=== PATIENT | male | born 1965 | race Caucasian/White ===

== ENCOUNTER → 2016-09-23 | Outpatient (CLI) | payer OTHER ==
[~2016-09-23] MED LIST: ASCO-129 PO; CALC600T12 PO; CATHETER FLUSH 10 ML SYR IV PRN; CLIN-62 PO; CLIN300C3 PO; CLINDAMYCIN PO; CYCL10TA9 PO; DOXY100C2 PO; ENAL10TA PO; GABA-486 PO; HYDR-3729 PO; HYDR-3812 PO; HYDR25TA4 PO; LORA10TA7 PO; REGADENOSON 0.4 MG/5 ML SYR (LEXISCAN) IV ONE; TRAM50TA2 PO
--- OUTSIDE RECORDS SUMMARY | 2016-09-23 07:25 | XMS REPORT | Continuity of Care Document ---
Author Author [facility] Organization [facility] Address Unknown Phone Unavailable Care Team Providers Care Well Services Operator Name Role Phone JuanpabloOralia cruz PCP [phone] Source Comments Some departments are not documenting in the electronic medical record. If you do not see the information that you expected, contact Release of Information in the Health Information Management department at [phone] for further assistance in locating additional records.[facility] Active Allergies and Adverse Reactions Allergen Noted Date Severity Reactions Comments Penicillins 08/31/2015 Medium HIVES Current Medications Prescription Sig. Disp. Refills Start End Date Status Date IBUPROFEN (ADVIL PO) Take 600 mg by mouth as Active Needed. acetaminophen/codeine Take 1 Tab by mouth every Active (TYLENOL NO.2) 300/15 mg 4 hours as needed for tablet Pain. CALCIUM CARBONATE Take 500 mg by mouth Active (CALCIUM 500 PO) daily. ASCORBATE CALCIUM Take 500 mg by mouth Active (VITAMIN C PO) daily. vitamin E 100 unit Take 100 Units by mouth Active capsule daily. DOCOSAHEXANOIC ACID/EPA Take 300 mg by mouth Active (FISH OIL PO) daily. potassium chloride SR Take 10 mEq by mouth Active (K-DUR) 10 mEq tablet daily. hydrochlorothiazide Take 12.5 mg by mouth Active (HYDRODIURIL) 12.5 mg tab daily. tablet magnesium oxide (MAG-OX) Take 400 mg by mouth Active 400 mg tablet daily. enalapril (VASOTEC) 10 mg Take 10 mg by mouth Active tablet daily. enalapril (VASOTEC) 5 mg Take 5 mg by mouth at Active tablet bedtime daily. loratadine (CLARITIN) 10 Take 10 mg by mouth Active mg tablet daily. gabapentin (NEURONTIN) Take 1 Cap by mouth three 90 Cap 5 08/31/19 Active 300 mg capsule times daily. 16 Active Problems Problem Noted Date Low back pain 08/31/2015 Pain in both lower extremities 08/31/2015 Muscle cramping 08/31/2015 Social History Tobacco Use Types Packs/Day Years Used Date Former Smoker Cigarettes 1 23 Quit: 08/17/2011 Alcohol Use Drinks/Week oz/Week Comments Yes 0 Standard 0.0 social rarely drinks or equivalent Last Filed Vital Signs Vital Sign Reading Time Taken Blood Pressure 148/93 08/31/2015 9:54 AM ALTO SINGER Pulse 79 08/31/2015 9:54 AM ALTO SINGER Temperature 36.9 C (98.4 F) 08/31/2015 9:54 AM ALTO SINGER Respiratory Rate 16 08/31/2015 9:54 AM ALTO SINGER Height 1.803 m (5' 11") 08/31/2015 9:54 AM ALTO SINGER Weight 102.967 kg (227 lb) 08/31/2015 9:54 AM ALTO SINGER Body Mass Index 31.67 08/31/2015 9:54 AM ALTO SINGER Oxygen Saturation 94% 08/31/2015 9:54 AM ALTO SINGER Plan of Care Health Maintenance Due Date Last Done Comments Physical (Comprehensive) 02/28/1971 Exam Pertussis Vaccine 02/28/1975 Tetanus Vaccine 02/28/1981 Colorectal Cancer 02/28/2014 Screening Influenza Vaccine 04/17/2016 Results from Last 3 Months Not on file
[2016-09-23 09:27] VITALS: BP 139/80
[2016-09-23 09:30] VITALS: BP 121/85
--- NOTE | 2016-09-24 09:16 | STRESS TEST ---
PROCEDURE PHYSICIAN: NOMAN PRATT DATE OF PROCEDURE: 09/23/2016 RESTING AND POST REGADENOSON TECHNETIUM 99M TETROFOSMIN SPECT CT IMAGING: ORDERING PHYSICIAN: Dr. Pratt PRIMARY PHYSICIAN: Dr. Geronimo CLINICAL DIAGNOSIS: 1. Abnormal electrocardiogram. 2. Hypertension. 3. Hyperlipidemia. 4. History of tobacco use. Baseline images were carried out after injection of 10.12 mCi of technetium 99m tetrofosmin. This was followed by 0.4 mg of regadenoson and 30.2 mCi of technetium 99m tetrofosmin for stress images. The electrocardiogram showed sinus rhythm with subtle nonspecific ST abnormality, which did not change significantly with regadenoson infusion. The patient tolerated the procedure well. Review of images at rest and following stress, does not indicate any significant perfusion defects consistent with myocardial ischemia or infarction. Left ventricular ejection fraction is calculated to be 55%. Left ventricular end-diastolic volume is 87 mL. TID is absent (1.04). CONCLUSIONS: 1. No evidence of significant myocardial ischemia or infarction on this study. 2. Normal regional wall motion. 3. Normal global left ventricular systolic function with a calculated ejection fraction of 55%. Job ID: [id number] Dictated Date: 09/23/2016 16:38:06 Supervisor Nurse Date: 09/24/2016 09:11:07 / mariah
== END ==
LOC: CARD 07:22
PROVIDERS: ATTEND Internal Medicine Cardiovascular Disease
DX: I10 Essential (primary) hypertension (principal); R94.31 Abnormal electrocardiogram [ECG] [EKG]; E78.4 Other hyperlipidemia; Z87.891 Personal history of nicotine dependence
CPT/HCPCS: 78452; 93017

== ENCOUNTER → 2016-09-24 | Outpatient (CLI) | payer OTHER ==
[~2016-09-24] MED LIST changes: -CATHETER FLUSH 10 ML SYR IV PRN; -REGADENOSON 0.4 MG/5 ML SYR (LEXISCAN) IV ONE
--- OUTSIDE RECORDS SUMMARY | 2016-09-24 13:00 | XMS REPORT | Continuity of Care Document ---
Author Author [facility] Organization [facility] Address Unknown Phone Unavailable Care Team Providers Care Reworker Name Role Phone JuanpabloOralia cruz PCP [phone] Source Comments Some departments are not documenting in the electronic medical record. If you do not see the information that you expected, contact Release of Information in the Health Information Management department at [phone] for further assistance in locating additional records.[facility] Active Allergies and Adverse Reactions Allergen Noted [...] Taken Blood Pressure 148/93 08/31/2015 9:54 AM SALVAGE WORKER Pulse 79 08/31/2015 9:54 AM SALVAGE WORKER Temperature 36.9 C (98.4 F) 08/31/2015 9:54 AM SALVAGE WORKER Respiratory Rate 16 08/31/2015 9:54 AM SALVAGE WORKER Height 1.803 m (5' 11") 08/31/2015 9:54 AM SALVAGE WORKER Weight 102.967 kg (227 lb) 08/31/2015 9:54 AM SALVAGE WORKER Body Mass Index 31.67 08/31/2015 9:54 AM SALVAGE WORKER Oxygen Saturation 94% 08/31/2015 9:54 AM SALVAGE WORKER Plan of Care Health Maintenance Due Date Last Done Comments Physical (Comprehensive) 02/28/1971 Exam Pertussis Vaccine 02/28/1975 Tetanus Vaccine 02/28/1981 Colorectal Cancer 02/28/2014 Screening Influenza Vaccine 04/17/2016 Results from Last 3 Months Not on file
--- NOTE | 2016-09-24 13:21 | Diagnostic Imaging Report ---
PROCEDURE: CT head without contrast. TECHNIQUE: Multiple contiguous axial images were obtained through the brain without the use of intravenous contrast. INDICATION: Headache. COMPARISON: None. FINDINGS: No intracranial hemorrhage, mass effect, hydrocephalus or extra-axial fluid collections. No CT evidence of acute infarction. Osseous structures are intact. The orbits and paranasal sinuses are unremarkable. IMPRESSION: Negative head CT. Dictated by: Dictated on workstation # [id number]
== END ==
LOC: RAD 12:57
PROVIDERS: ATTEND Internal Medicine Cardiovascular Disease
DX: R51 Headache (principal)
CPT/HCPCS: 70450

== ENCOUNTER → 2016-10-13 | Outpatient (CLI) | payer OTHER ==
--- OUTSIDE RECORDS SUMMARY | 2016-10-13 09:07 | XMS REPORT | Continuity of Care Document ---
Author Author [facility] Organization [facility] Address Unknown Phone Unavailable Care Team Providers Care Commercial Leasing Manager Name Role Phone JuanpabloOralia cruz PCP [phone] Source Comments Some departments are not documenting in the electronic medical record. If you do not see the information that you expected, contact Release of Information in the Health Information Management department at [phone] for further assistance in locating additional records.[facility] Active Allergies and Adverse Reactions Allergen Noted [...] Taken Blood Pressure 148/93 08/31/2015 9:54 AM WASHCOAT WIPER Pulse 79 08/31/2015 9:54 AM WASHCOAT WIPER Temperature 36.9 C (98.4 F) 08/31/2015 9:54 AM WASHCOAT WIPER Respiratory Rate 16 08/31/2015 9:54 AM WASHCOAT WIPER Height 1.803 m (5' 11") 08/31/2015 9:54 AM WASHCOAT WIPER Weight 102.967 kg (227 lb) 08/31/2015 9:54 AM WASHCOAT WIPER Body Mass Index 31.67 08/31/2015 9:54 AM WASHCOAT WIPER Oxygen Saturation 94% 08/31/2015 9:54 AM WASHCOAT WIPER Plan of Care Health Maintenance Due Date Last Done Comments Physical (Comprehensive) 02/28/1971 Exam Pertussis Vaccine 02/28/1975 Tetanus Vaccine 02/28/1981 Colorectal Cancer 02/28/2014 Screening Influenza Vaccine 04/17/2016 Results from Last 3 Months Not on file
[2016-10-13 09:34] LABS: ALANINE AMINOTRANSFERASE 56 U/L (0-55); ALBUMIN 4.4 G/DL (3.2-4.5); ANION GAP 10 MMOL/L (5-14); ASPARTATE AMINO TRANSFERASE 29 U/L (5-34); BILIRUBIN,TOTAL 1.3 MG/DL (0.1-1.0); BLOOD UREA NITROGEN 19 MG/DL (7-18); BUN/CREATININE RATIO 19; CALCIUM 9.2 MG/DL (8.5-10.1); CARBON DIOXIDE 22 MMOL/L (21-32); CHLORIDE 109 MMOL/L (98-107); CHOLESTEROL 215 MG/DL (< 200); DIRECT LDL 149 MG/DL (1-129); GFR ESTIMATED > 60; GLUCOSE 97 MG/DL (70-105); MAGNESIUM 2.2 MG/DL (1.8-2.4); POTASSIUM 4.7 MMOL/L (3.6-5.0); SODIUM 141 MMOL/L (135-145); TOTAL PROTEIN 6.8 G/DL (6.4-8.2); TRIGLYCERIDES 219 MG/DL (<150); VLDL CHOLESTEROL 44 MG/DL (5-40)
[2016-10-13 09:54] LABS: THYROID STIMULATING HORMONE 1.51 UIU/ML (0.35-4.94)
== END ==
LOC: LAB 08:56
PROVIDERS: ATTEND Internal Medicine Cardiovascular Disease
DX: I10 Essential (primary) hypertension (principal); R94.31 Abnormal electrocardiogram [ECG] [EKG]; E78.4 Other hyperlipidemia; R51 Headache; Z87.891 Personal history of nicotine dependence
CPT/HCPCS: 36415; 80053; 80061; 83735; 84443

== ENCOUNTER → 2017-01-05 | Outpatient (CLI) | payer OTHER ==
[2017-01-05 09:17] LABS: ALANINE AMINOTRANSFERASE 70 U/L (0-55); ANION GAP 7 MMOL/L (5-14); ASPARTATE AMINO TRANSFERASE 38 U/L (5-34); BILIRUBIN,TOTAL 1.4 MG/DL (0.1-1.0); BLOOD UREA NITROGEN 17 MG/DL (7-18); BUN/CREATININE RATIO 16; CARBON DIOXIDE 21 MMOL/L (21-32); CHLORIDE 115 MMOL/L (98-107); CHOLESTEROL 189 MG/DL (< 200); CREATININE SERUM 1.09 MG/DL (0.60-1.30); DIRECT LDL 152 MG/DL (1-129); GFR ESTIMATED > 60; GLUCOSE 99 MG/DL (70-105); POTASSIUM 4.3 MMOL/L (3.6-5.0); SODIUM 143 MMOL/L (135-145); TOTAL PROTEIN 6.3 G/DL (6.4-8.2); TRIGLYCERIDES 161 MG/DL (<150); VLDL CHOLESTEROL 32 MG/DL (5-40)
== END ==
LOC: LAB 08:28
PROVIDERS: ATTEND Nurse Practitioner Family
DX: I10 Essential (primary) hypertension (principal); E87.4 Mixed disorder of acid-base balance; G47.39 Other sleep apnea; R51 Headache; Z79.891 Long term (current) use of opiate analgesic
CPT/HCPCS: 36415; 80053; 80061

== ENCOUNTER → 2019-07-19 | Outpatient (CLI) | payer BC, OTHER ==
[~2019-07-19] VITALS: Ht 180.3 cm; Wt 101.4 kg
[~2019-07-19] MED LIST changes: +ACHD5005 PO; +CATHETER FLUSH 10 ML SYR IV PRN; -HYDR-3812 PO; +REGADENOSON 0.4 MG/5 ML SYR (LEXISCAN) IV ONE
--- NOTE | 2019-07-25 09:50 | STRESS TEST ---
DATE OF SERVICE: 07/19/2019 RESTING AND POST REGADENOSON TECHNETIUM-99M TETROFOSMIN SPECT CT IMAGING ORDERING PHYSICIAN: Stephani Hidalgo APRN PRIMARY PHYSICIAN: Dr. Geronimo. CLINICAL DIAGNOSIS: Shortness of breath, chest discomfort. Baseline images were carried out after injection of 10.6 mCi of technetium-99m Tetrofosmin. This was followed by 0.4 mg Regadenoson and 29.9 mCi of technetium-99m Tetrofosmin for stress imaging. The electrocardiogram showed sinus rhythm with nonspecific ST abnormality, which did not change significantly with Regadenoson infusion. The patient tolerated the procedure well. Review of images at rest and following stress does not indicate distinct perfusion defects consistent with significant myocardial ischemia or infarction. Gated images show normal global left ventricular systolic function with normal regional wall motion. Left ventricular ejection fraction is calculated to be 55%. Left ventricular end diastolic volume is 76 mL. TID is absent (1.06). CONCLUSIONS: 1. No evidence of any significant myocardial ischemia or infarction on this study. 2. Normal regional wall motion. 3. Normal global left ventricular systolic function with a calculated ejection fraction of 55%. Job ID: [id number] DocumentID: [id number] Dictated Date: 07/25/2019 08:45:32 Poleyard Supervisor Date: 07/25/2019 09:25:26 Dictated By: NOMAN GALLARDO MD, MA, FACP, FACC,
== END ==
LOC: CARD 12:01
PROVIDERS: ATTEND Nurse Practitioner Family
DX: E78.5 Hyperlipidemia, unspecified (principal); I10 Essential (primary) hypertension; G47.33 Obstructive sleep apnea (adult) (pediatric); R00.2 Palpitations; R07.89 Other chest pain
CPT/HCPCS: 78452; 93017

== ENCOUNTER → 2019-07-25 | Outpatient (CLI) | payer BC, OTHER ==
[~2019-07-25] MED LIST changes: -CATHETER FLUSH 10 ML SYR IV PRN; -REGADENOSON 0.4 MG/5 ML SYR (LEXISCAN) IV ONE
== END ==
LOC: RAD 13:38
PROVIDERS: ATTEND Nurse Practitioner Family
DX: I08.0 Rheumatic disorders of both mitral and aortic valves (principal); I10 Essential (primary) hypertension; E78.5 Hyperlipidemia, unspecified; G47.33 Obstructive sleep apnea (adult) (pediatric)
CPT/HCPCS: 93225; 93226; 93306

== ENCOUNTER 2019-12-27 07:05 | Day surgery (SDC) | payer BC ==
[~2019-12-27] VITALS: Ht 180 cm; Wt 100.0 kg
[2019-12-27] VITALS (10 sets, daily range): BP systolic 106–130; BP diastolic 64–84
[2019-12-27] MEDS ORDERED: HEParin (CATH LAB) 2,000 ML IV ONE (07:06)
[2019-12-27] MEDS ORDERED: NS IV 1000 ML 1,000 ML ONE (07:06)
[2019-12-27] MEDS ORDERED: LIDOCAINE 1% INJ 20 ML 20 ML VIAL ONE (07:06)
[2019-12-27] MEDS ORDERED: NS IV 1000 ML 1,000 ML IV SCH ×2 (07:15→10:44)
--- OUTSIDE RECORDS SUMMARY | 2019-12-27 07:18 | XMS REPORT ---
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 Operator Tig Welder Name Role Phone JOHANNA, STEPHANI A Unavailable INDY JORGE Unavailable Unavailable CALVO, ANA-DANIELLE Unavailable Unavailable CALVO, ANA-DANIELLE Unavailable Unavailable BROKOB, SIDNEY Unavailable Unavailable BROWN, NEW Unavailable Unavailable BROWN, NEW Unavailable Unavailable PAULINA LABOY FAC, NOMAN SULTANAP CCDS Unavailable Unavailabl e JOHANNA, STEPHANI Unavailable Unavailable JOHANNA, STEPHANI Unavailable Unavailable JOHANNA, STEPHANI Unavailable Unavailable JOHANNA, STEPHANI Unavailable Unavailable BROKOB, SIDNEY Unavailable Unavailable BROKOB, SIDNEY Unavailable Unavailable BROKOB, SIDNEY Unavailable Unavailable JOHANNA, STEPHANI Unavailable Unavailable JOHANNA, STEPHANI Unavailable Unavailable BROWN, NEW Unavailable Unavailable BROWN, NEW Unavailable Unavailable BROWN, NEW Unavailable Unavailable PAULINA LABOY [facility], NOMAN GONZALEZ CCDS Unavailable Unavailabl e BRENNEN DPM, ALISA Q Unavailable Unavailable LORI, HIMANSHU L DISTRICT CUSTOMS DIRECTOR Unavailable Unavailable SANTIAGO LABOY, PAM Schultz Unavailable Unavailable SANTIAGO LABOY, PAM Schultz Unavailable Unavailable Unavailable Unavailable Unavailable Unavailable Unavailable Unavailable Allergies No Information Medications Medication Ingredient Drug Dose Dates Status Sig Sig Care Class(es) (Normalized) (Original) Provid er no Lisinopril Angiotensin 10 mg 09-12-19 no no no no information Converting 17 - informat information informati on name (1 source.) Enzyme 09-18-19 ion Inhibitor 17 10 mg 09-11-2016 no no no no name - information inform informat 09-11-2016 ation ion Problems Active Problems Problem Normalized Date Last Normalized Normalized Provider Fa tamikoty Classification Problem(s) Recorded Problem Problem Sta tus Duration Other Abnormal 12-23-2019 - Episodic Active NOMAN GALLARDO [facility] Via screening for electrocardiog [facility] Aliya suspected miah [ECG] Hospital - conditions [EKG] [place] (not mental (62896) disorders or infectious disease) (7 sources.) Acute Acute Episodic Active [facility] bronchitis (2 bronchitis, [facility] of sources.) unspecified [place] Translations: [facility] (71642) [ ACUTE BRONCHITIS] Other upper Allergic Chronic Active [facility] respiratory rhinitis, [facility] of disease (1 unspecified [place] source.) [facility] (56767) Skin and Cellulitis and 12-23-2019 - Episodic Active PAM ADLER [facility] Via subcutaneous abscess of , [place] tissue face Hospital - infections (2 [place] sources.) (02079) Other Cramp and Episodic Active [facility] connective spasm [facility] of tissue disease [place] (2 sources.) [facility] (41488) Other Cramp of limb Episodic Active [facility] ital connective [facility] of tissue disease [place] (2 sources.) [facility] (38751) Disorders of Dental caries, 12-23-2019 - Episodic Active JUAN M HENDERSON [facility] Via teeth and jaw unspecified , [place] (2 sources.) [facility] (60771) Other Diarrhea Episodic Active [facility] gastrointestin [facility] of al disorders [place] (4 sources.) [facility] (97740) Other Diarrhea, Episodic Active [facility] gastrointestin unspecified [facility] of al disorders [place] (4 sources.) [facility] (70905) Immunizations Encounter for 12-23-2019 - Episodic Active ALISA HUTTON [facility] Via and screening screening for ELAINE [place] for infectious other Hospital - disease (3 bacterial [place] sources.) diseases (38455) Essential Essential 12-23-2019 - Chronic Active SIDNEY MARYLUB Not Available hypertension (primary) (59723) (24 sources.) hypertension Translations: [ UNSPECIFIED ESSENTIAL HYPERTENSION, MALIGNANT ESSENTIAL HYPERTENSION] Headache; Headache 12-23-2019 - Episodic Active INDY HOWAYEK Not Available including (70251) migraine (11 sources.) Gout and other Idiopathic Chronic Active INDY HOWAYEK No t Available crystal gout, left (95787) arthropathies ankle and foot (3 sources.) Translations: [ IDIOPATHIC GOUT, RIGHT ANKLE AND FOOT, GOUTY ARTHROPATHY, UNSPECIFIED] Other Idiopathic Chronic Active INDY HOWAYEK 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 (13053) degenerative autonomic nervous system neuropathy, conditions (5 unspecified sources.) Other injuries Insect bite, Episodic Active [facility] ospital and conditions nonvenomous, [facility] of due to of other, [place] external multiple, and County ([address]594) causes (2 unspecified sources.) sites, without mention of infection Other long term 12-23-2019 - Episodic Active HIMANSHU BAIMA [facility] Via aftercare (3 (current) use Aliya sources.) of opiate Hospital - analgesic [place] (92479) Spondylosis; Low back pain Episodic Active [facility] ospital intervertebral Translations: [facility] of disc [ PAIN IN [place] disorders; THORACIC County (89548) other back SPINE, problems (22 LUMBAGO, PAIN sources.) IN THORACIC SPINE] Fluid and Mixed disorder 12-23-2019 - Episodic Active HIMANSHU BAIMA [facility] Via electrolyte of acid-base Aliya disorders (3 balance Hospital - sources.) [place] (42049) Disorders of Mixed 12-23-2019 - Chronic Active [facility] B Not Available lipid hyperlipidemia (92198) metabolism (21 Translations: sources.) [ MIXED HYPERLIPIDEMIA , HYPERLIPIDEMIA , UNSPECIFIED, OTHER AND UNSPECIFIED HYPERLIPIDEMIA , OTHER HYPERLIPIDEMIA ] Residual Obstructive 12-23-2019 - Chronic Active HIMANSHU BAIM A [facility] Via codes; sleep apnea Aliya unclassified (adult) Hospital - (4 sources.) (pediatric) [place] (52537) Nonspecific Other chest 12-23-2019 - Episodic Active [facility] chest pain (5 pain [facility] of sources.) Translations: [place] [ OTHER CHEST [facility] (55298) PAIN] Other Other Chronic Active INDY JORGE Not Avail able hereditary and idiopathic (52333) degenerative peripheral nervous system autonomic conditions (5 neuropathy sources.) Residual Other Episodic Active [facility] Hospital codes; ill-defined [facility] of unclassified conditions [place] (2 sources.) [facility] (54798) Residual Other sleep 12-23-2019 - Chronic Active HIMANSHU BAIM A [facility] Via codes; apnea Aliya unclassified Hospital - (3 sources.) [place] (00885) Cardiac Palpitations 12-23-2019 - Episodic Active HIMANSHU KARLEE MA [facility] Via dysrhythmias [facility] (3 sources.) Hospital - [place] (51760) Screening and Personal 12-23-2019 - Episodic Active NOMAN GALLARDO , [facility] Via history of history of FACC Aliya mental health nicotine Hospital - and substance dependence [place] abuse codes (7 (08815) sources.) Other lower Pleurodynia Episodic Active SIDNEY BROKOB Hospi luisa respiratory [facility] of disease (2 [place] sources.) [facility] (72140) Other skin Rash and other Episodic Active STEPHANI JOHANNA Ho spital disorders (3 nonspecific [facility] of sources.) skin eruption [facility] (77773) Other skin Rash and other Episodic Active STEPHANI JOHANNA Ho spital disorders (3 nonspecific [facility] of sources.) skin eruption [facility] (20265) Heart valve Rheumatic 12-23-2019 - Chronic Active HIMANSHU KARLEE MA [facility] Via disorders (1 disorders of , DISTRICT CUSTOMS DIRECTOR [facility] source.) both mitral Hospital - and aortic [place] valves (22587) Abdominal pain Right lower Episodic Active no name no in formation (4 sources.) quadrant pain Translations: [ ABDOMINAL PAIN, RIGHT LOWER QUADRANT] Other Spontaneous 12-23-2019 - Episodic Active ALISA HUTTON , [facility] Via connective rupture of [facility] tissue disease other tendons, Hospital - (2 sources.) other [place] (05787) Sprains and Strain of Episodic Active no name no informa tion strains (3 muscle, fascia sources.) and tendon of abdomen Translations: [ OTHER SPECIFIED SITES OF SPRAINS AND STRAINS] Other ear and Tinnitus, Episodic Active SIDNEY BROKOB Hospi luisa sense organ unspecified [facility] of disorders (4 ear [place] sources.) [facility] (10897) Other ear and Unspecified Chronic Active SIDNEY BROKOB Hos pital sense organ hearing loss, [facility] of disorders (5 unspecified [place] sources.) ear [facility] (47435) Other injuries Unspecified Episodic Active SIDNEY BROKOB Ho spital and conditions multiple [facility] of due to injuries [place] external [facility] (96121) causes (2 sources.) Viral Viral Episodic Active [facility] infection (2 infection, [facility] of sources.) unspecified [facility] (97223) Past or Other Problems Problem Normalized Date Last Normalized Normalized Provider Fa cility Classification Problem(s) Recorded Problem Problem Sta tus Duration Unclassified Allergic no information no information [facility] (1 source.) rhinitis [facility] of [facility] (94554) Residual Edema Episodic Completed INDY JORGE Not Avail able codes; (83513) unclassified (3 sources.) Unclassified Hearing loss no information no information [facility] (5 sources.) [facility] of [facility] (77023) Residual Localized Episodic Completed INDY HOWAYEK Not Avai lable codes; edema (41787) unclassified (3 sources.) Other Other Episodic Completed INDY HOWAYEK Not Avail able complications complications (31610) of ; of anesthesia puerperium or other affecting sedation in management of labor and mother (1 delivery, source.) delivered, with or without mention of antepartum condition Unclassified Tinnitus no information no information [facility] (4 sources.) [facility] of [facility] (53612) Procedures Procedure Normalized Procedure Procedure Result Performer Facility Date 10-17-2014 DRAIN FACE MOUTH FLOOR no information no name [facility] Via [facility] (63880) 10-17-2014 Other surgical no information no name [facility] Via [facility] (09386) Immunizations The data below is from unstructured sourcesNo immunization records.No immunization records.No immunization records. Results Test Name Value Interpretation Reference Range Date Time Fa cility (Normalized) (Normalized) (Medline Reference) not yet categorized on 2019-08-23 Urine Volume Urine Volume (no code) 08-23-2019 Hospital Sufficient 03: [facility] of (10mL) [facility] (46317) no information Urine Saved if (A) 08-23-2019 Hospital Culture Needed 03: [facility] of (48hrs from time [facility] of collection) (16932) laboratory on 2019-08-23 Albumin BCG dye 4.5 (no code) 08-23-2019 Hospital [Mass/Vol] 03: [facility] of [facility] (42416) ALP [Catalytic 64 U/L (no code) 44 - 147 U/L 08-23-2019 Hosp ital activity/Vol] 03: [facility] of [facility] (98971) ALT [Catalytic 30 U/L (no code) 4 - 40 U/L 08-23-2019 Hospit al activity/Vol] 03: [facility]1 [facility] (53680) Anion gap 13 mmol/L (no code) 3 - 11 mmol/L 08-23-2019 Hospital [Moles/Vol] 03: [facility] of [facility] (71149) AST [Catalytic 21 U/L (no code) 10 - 34 U/L 08-23-2019 Hospi luisa activity/Vol] 03: [facility] of [facility] (87728) Bacteria LM Ql Negative (no code) 08-23-2019 Hospital (Urine sed) 03: [facility] of [facility] (74728) Basophils (Bld) 0.1 10*3/uL (no code) 0 - 0.3 10*3/uL 08-23-2019 Hospital [#/Vol] 03: [facility] of [facility] (67618) Basophils/100 1.20 % (no code) 0.5 - 1 % 08-23-2019 Hospital WBC (Bld) 03: [facility] of [facility] () Bilirubin 0.6 mg/dL (no code) 0.1 - 1.2 mg/dL 08-23-2019 Hospit al [Mass/Vol] 03: [facility] of [facility] (25438) Bilirubin N/A (A) 08-23-2019 Hospital Confirm Ql (U) 03: [facility] of [facility] (40001) Bilirubin Ql (U) Negative (no code) 08-23-2019 Hospital 03: [facility] of [facility] (90405) Calcium 9.2 mg/dL (no code) 8.5 - 10.2 mg/dL 08-23-2019 Hospi luisa [Mass/Vol] 03: [facility] of [facility] (18886) Chloride 112 mmol/L (no code) 95 - 106 mmol/L 08-23-2019 Hospi luisa [Moles/Vol] 03: [facility] of [facility] (08305) Cholesterol 248 mg/dL (H) 180 - 200 mg/dL 08-23-2019 Hosp ital [Mass/Vol] 03: [facility] of [facility] (46902) Cholesterol in 32 mg/dL (no code) 08-23-2019 Hospital HDL [Mass/Vol] 03: [facility] of [facility] (25321) Cholesterol in 183 mg/dL (H) 0 - 100 mg/dL 08-23-2019 Hos pital LDL [Mass/Vol] 03: [facility] of [facility] (83823) Cholesterol in 33 mg/dL (no code) 08-23-2019 Hospital VLDL [Mass/Vol] 03: [facility] of [facility] (24795) Cholesterol.tota 7.8 {ratio} (H) 08-23-2019 Hospital l/Cholesterol in 03: [facility] of HDL [Mass ratio] [facility] (89974) Clarity (U) Clear (no code) 08-23-2019 Hospital 03: [facility] of [facility] (30507) Color (U) Yellow (no code) 08-23-2019 Hospital 03: [facility] () Creatinine 0.99 mg/dL (no code) 08-23-2019 Hospital [Mass/Vol] 03: [facility] of [facility] (86312) Eosinophils 0.2 10*3/uL (no code) 0.05 - 0.5 08-23-2019 Hospita l (Bld) [#/Vol] 10*3/uL 03: [facility] of [facility] (52676) Eosinophils/100 3.1 % (no code) 1 - 4 % 08-23-2019 Hospit al WBC (Bld) 03: [facility] of [facility] (09269) Epithelial Rare/HPF (A) 08-23-2019 Hospital cells.squamous 03: [facility] of LM.HPF (Urine [facility] sed) [#/Area] (38606) Erythrocyte 12.9 % (no code) 11.6 - 14.6 % 08-23-2019 Hospit al distribution 03: [facility] of width (RBC) [facility] [Ratio] (38739) GFR/1.73 sq 78 (no code) 90 - 120 08-23-2019 Hospital M.predicted MDRD mL/min/{1.73_m2} mL/min/{1.73_m2} 03: [facility] of (S/P/Bld) [Vol [facility] rate/Area] (47468) Globulin (S) 2.6 g/dL (no code) 2 - 3.5 g/dL 08-23-2019 Hospit al [Mass/Vol] 03: [facility] of [facility] () Glucose 95 mg/dL (no code) 60 - 125 mg/dL 08-23-2019 Hospita l [Mass/Vol] 03: [facility] () Glucose Test Negative (no code) 08-23-2019 Hospital strip (U) 03: [facility] of [Mass/Vol] [facility] () HCO3 (P) 22 (no code) 08-23-2019 Hospital [Moles/Vol] 03: [facility] of [facility] () Hematocrit (Bld) 41.1 % (L) 36.1 - 50.3 % 08-23-2019 H ospital [Volume 03: [facility] of fraction] [facility] () Hemoglobin (Bld) 14.1 g/dL (no code) 12.1 - 17.2 g/dL 08-23-2019 Hospital [Mass/Vol] 03: [facility] () Hemoglobin Ql Negative (no code) 08-23-2019 Hospital (U) 03: [facility] () Ketones (U) Negative (no code) 08-23-2019 Hospital [Mass/Vol] 03: [facility] () Leukocyte Negative (no code) 08-23-2019 Hospital esterase Test 03: [facility] of strip Ql (U) [facility] () Lymphocytes 1.80 10*3/uL (no code) 0.9 - 2.9 08-23-2019 Hospita l (Bld) [#/Vol] 10*3/uL 03: [facility] of [facility] (82419) Lymphocytes/100 28.1 % (no code) 20 - 40 % 08-23-2019 Hospit al WBC (Bld) 03: [facility] of [facility] (62129) MCH (RBC) 31.1 pg (no code) 27 - 31 pg 08-23-2019 Hospital [Entitic mass] 03: [facility] (14098) MCHC (RBC) 34.3 g/dL (no code) 32 - 36 g/dL 08-23-2019 Hospital [Mass/Vol] 03: [facility] of [facility] (22531) MCV (RBC) 90.7 fL (no code) 80 - 100 fL 08-23-2019 Hospital [Entitic vol] 03: District 1 of [facility] (16576) Monocytes (Bld) 0.8 10*3/uL (no code) 0.3 - 0.9 08-23-2019 Hosp ital [#/Vol] 10*3/uL 03: [facility] () Monocytes/100 12.2 % (H) 2 - 8 % 08-23-2019 Hospital WBC (Bld) 03: District 1 [facility] (28966) Neutrophils 3.55 10*3/uL (no code) 1.7 - 7 10*3/uL 08-23-2019 H ospital (Bld) [#/Vol] 03: [address] ([address]) Neutrophils/100 55.4 % (no code) 40 - 60 % 08-23-2019 Hospit al WBC (Bld) 03: [address] (39288) Nitrite Ql (U) Negative (no code) 08-23-2019 Hospital 03: [facility] (69334) Osmolality Calc 293 (no code) 08-23-2019 Hospital [Osmolality] 03: [address] (41677) pH (U) 7.0 [pH] (no code) 4.6 - 8 [pH] 08-23-2019 Hospital 03: [facility] (43777) Platelet mean 10.3 fL (H) 7.2 - 11.7 fL 08-23-2019 Hosp ital volume (Bld) 03: [facility] [Entitic vol] [facility] (87308) Platelets (Bld) 290 10*3/uL (no code) 150 - 450 08-23-2019 Hosp ital [#/Vol] 10*3/uL 03: [facility] () Potassium 4.7 mmol/L (no code) 3.7 - 5.2 mmol/L 08-23-2019 Hosp ital [Moles/Vol] 03: [facility] () Prostate 0.7 ug/L (no code) 08-23-2019 Hospital specific Ag DL 03: [facility] of <= 0.01 ng/mL [facility] [Mass/Vol] (20201) Protein (U) Negative (no code) 0 - 20 mg/dL 08-23-2019 Hospita l [Mass/Vol] 03: [facility] () Protein 7.1 g/dL (no code) 6.4 - 8.3 g/dL 08-23-2019 Hospita l [Mass/Vol] 03: [facility] () RBC (Bld) 4.53 10*6/uL (no code) 4.2 - 6.1 08-23-2019 Hospital [#/Vol] 10*6/uL 03: [facility] () RBC LM.HPF Negative (no code) 0 - 4 /[HPF] 08-23-2019 Hospital (Urine sed) 03: [facility] of [#/Area] [facility] (23107) Sodium 142 mmol/L (no code) 135 - 145 mmol/L 08-23-2019 Hosp ital [Moles/Vol] 03: [facility] () Specific gravity 1.020 (no code) 08-23-2019 Hospital (U) [Rel 03: [facility] of density] [facility] () Triglyceride 165 mg/dL (H) 0 - 150 mg/dL 08-23-2019 Hospi luisa [Mass/Vol] 03: [facility] () TSH Qn 1.25 (no code) 08-23-2019 Hospital 03: [facility] (19878) Urea nitrogen 13 mg/dL (no code) 7 - 20 mg/dL 08-23-2019 Hospi luisa [Mass/Vol] 03: [facility] (44197) Urobilinogen Qn [id number] (A) 08-23-2019 Hospital (U) {Alon'U}/dL 03: [facility] o f [facility] (75009) WBC (Bld) 6.41 10*3/uL (no code) 3.5 - 10.5 08-23-2019 Hospital [#/Vol] 10*3/uL 03: [facility] (90552) WBC LM.HPF Negative (no code) 0 - 5 /[HPF] 08-23-2019 Hospital (Urine sed) 03: [facility] of [#/Area] [facility] (37524) Yeast.budding Ql No Yeast present (no code) 08-23-2019 Hosp ital (Urine sed) 03: [facility] (32622) laboratory on 2019-06-24 Microscopic No Fungal (no code) 06-24-2019 Hospital observation CESARIO elements seen 06: [facility] o f prep Nom (Unsp [facility] spec) (82561) urinalysis on 2018-05-14 Bilirubin Ql (U) 0.7 (no code) 05-14-2018 no inform ation 12: other on 2018-05-14 Globulin 2.6 g/dL (no code) 2 - 3.5 g/dL 05-14-2018 no inform ation Calculated mass : conc (S) metabolic panel on 2018-05-14 Albumin mass 4.1 g/dL (no code) 3.4 - 5.4 g/dL 05-14-2018 no i nformation conc 12: ALP enzyme 64 U/L (no code) 44 - 147 U/L 05-14-2018 no infor mation act/vol 12: ALT enzyme 34 U/L (no code) 4 - 40 U/L 05-14-2018 no informa tion act/vol 12:06-0400 Anion gap 3 11 mmol/L (no code) 3 - 11 mmol/L 05-14-2018 no inf ormation molar conc 12:0400 AST enzyme 26 U/L (no code) 10 - 34 U/L 05-14-2018 no inform ation act/vol 12: Calcium mass 9.3 mg/dL (no code) 8.5 - 10.2 mg/dL 05-14-2018 no information conc 12:0 Chloride molar 115 mmol/L (H) 95 - 106 mmol/L 05-14-2018 no information conc 12: CO2 molar conc 19 mmol/L (L) 23 - 29 mmol/L 05-14-2018 no information 12:0 Creatinine mass 0.93 mg/dL (no code) 05-14-2018 no informa tion conc 12: GFR/1.73 sq M 85 (no code) 90 - 120 05-14-2018 no infor mation predicted among mL/min/{1.73_m2} mL/min/{1.73_m2} 12:040 0 non-blacks MDRD vol rate/area (S/P/Bld) Glucose mass 114 mg/dL (H) 60 - 125 mg/dL 05-14-2018 no i nformation conc 12: Osmolality 292 mosm/kg (no code) 275 - 295 05-14-2018 no inform ation mosm/kg 12: Potassium molar 3.8 mmol/L (no code) 3.7 - 5.2 mmol/L 05-14-2018 no information conc 12:0 Protein mass 6.7 g/dL (no code) 6.4 - 8.3 g/dL 05-14-2018 no i nformation conc 12:0 Sodium molar 141 mmol/L (no code) 135 - 145 mmol/L 05-14-2018 n o information conc 12: Urea nitrogen 14 mg/dL (no code) 7 - 20 mg/dL 05-14-2018 no in formation mass conc 12:06-0400 hematology on 2018-05-14 Basophils Auto 0.0 10*3/uL (no code) 0 - 0.3 10*3/uL 05-14-2018 no information #/vol (Bld) 12:0 Basophils/100 0.60 % (no code) 0.5 - 1 % 05-14-2018 no infor mation WBC Auto (Bld) 12: Eosinophils Auto 0.1 10*3/uL (no code) 0.05 - 0.5 05-14-2018 no information #/vol (Bld) 10*3/uL 12: Eosinophils/100 2.6 % (no code) 1 - 4 % 05-14-2018 no inf ormation WBC Auto (Bld) 12: Erythrocyte 12.8 % (no code) 11.6 - 14.6 % 05-14-2018 no inf ormation distribution 12: width Auto Ratio (RBC) Hematocrit Auto 39.2 % (L) 36.1 - 50.3 % 05-14-2018 no information Volume Fraction 12: (Bld) Hemoglobin mass 13.6 g/dL (L) 12.1 - 17.2 g/dL 05-14-2018 no information conc (Bld) 12: Lymphocytes Auto 1.58 10*3/uL (no code) 0.9 - 2.9 05-14-2018 no information #/vol (Bld) 10*3/uL 12: Lymphocytes/100 29.6 % (no code) 20 - 40 % 05-14-2018 no inf ormation WBC Auto (Bld) 12: MCH Auto Entitic 31.3 pg (H) 27 - 31 pg 05-14-2018 no i nformation mass (RBC) 12: MCHC Auto mass 34.7 g/dL (no code) 32 - 36 g/dL 05-14-2018 no i nformation conc (RBC) 12: MCV Auto Entitic 90.1 fL (no code) 80 - 100 fL 05-14-2018 no information volume (RBC) 12: Monocytes Auto 0.6 10*3/uL (no code) 0.3 - 0.9 05-14-2018 no in formation #/vol (Bld) 10*3/uL 12: Monocytes/100 10.3 % (no code) 2 - 8 % 05-14-2018 no infor mation WBC Auto (Bld) 12:060400 Neutrophils Auto 3.04 10*3/uL (no code) 1.7 - 7 10*3/uL 05-14-20 18 no information #/vol (Bld) 12:06-0400 Neutrophils/100 56.9 % (no code) 40 - 60 % 05-14-2018 no inf ormation WBC Auto (Bld) 12:06-0400 Platelet mean 10.8 fL (H) 7.2 - 11.7 fL 05-14-2018 no i nformation volume Auto 12:-0400 Entitic volume (Bld) Platelets Auto 249 10*3/uL (no code) 150 - 450 05-14-2018 no in formation #/vol (Bld) 10*3/uL 12:060400 RBC Auto #/vol 4.35 10*6/uL (no code) 4.2 - 6.1 05-14-2018 no i nformation (Bld) 10*6/uL 12:060400 WBC Auto #/vol 5.34 10*3/uL (no code) 3.5 - 10.5 05-14-2018 no information (Bld) 10*3/uL 12:06-0400 other on 2018-03-15 Anaplasma Negative (no code) 03-15-2018 [facility] (86582 ) phagocytophilum 16:20-0400 Ab.IgG Anaplasma Negative (no code) 03-15-2018 [facility] ([id number] ) phagocytophilum 16:20-0400 Ab.IgM Ehrlichia Negative (no code) 03-15-2018 [facility] ([id number] ) chaffeensis 16:20-0400 Ab.IgG Ehrlichia Negative (no code) 03-15-2018 [facility] ([id number] ) chaffeensis 16:20-0400 Ab.IgM other on 2018-03-13 Rickettsia 0.47 (no code) 03-13-2018 [facility] ([id number] ) rickettsii 01:24-0400 Ab.IgM other on 2018-03-12 Rickettsia Negative (no code) 03-12-2018 [facility] ([id number] ) rickettsii 22:42-0400 Ab.IgG urinalysis on 2018-03-10 Bilirubin Ql (U) 0.7 (no code) 03-10-2018 no inform ation 12:47-0400 other on 2018-03-10 Globulin 2.5 g/dL (no code) 2 - 3.5 g/dL 03-10-2018 no inform ation Calculated mass 12:47-0400 conc (S) metabolic panel on 2018-03-10 Albumin mass 4.5 g/dL (no code) 3.4 - 5.4 g/dL 03-10-2018 no i nformation conc 12:47-0400 ALP enzyme 64 U/L (no code) 44 - 147 U/L 03-10-2018 no infor mation act/vol 12:47-0400 ALT enzyme 43 U/L (no code) 4 - 40 U/L 03-10-2018 no informa tion act/vol 12:47-0400 Anion gap 3 15 mmol/L (H) 3 - 11 mmol/L 03-10-2018 no inf ormation molar conc 12:47-0400 AST enzyme 25 U/L (no code) 10 - 34 U/L 03-10-2018 no inform ation act/vol 12:47-0400 Calcium mass 9.4 mg/dL (no code) 8.5 - 10.2 mg/dL 03-10-2018 no information conc 12:47-0400 Chloride molar 114 mmol/L (no code) 95 - 106 mmol/L 03-10-2018 no information conc 12:47-0400 CO2 molar conc 17 mmol/L (L) 23 - 29 mmol/L 03-10-2018 no information 12:47-0400 Creatinine mass 0.94 mg/dL (no code) 03-10-2018 no informa tion conc 12:47-0400 GFR/1.73 sq M 84 (no code) 90 - 120 03-10-2018 no infor mation predicted among mL/min/{1.73_m2} mL/min/{1.73_m2} 12:47-040 0 non-blacks MDRD vol rate/area (S/P/Bld) Glucose mass 84 mg/dL (no code) 60 - 125 mg/dL 03-10-2018 no i nformation conc 12:47-0400 Osmolality 294 mosm/kg (no code) 275 - 295 03-10-2018 no inform ation mosm/kg 12:47-040 Potassium molar 4.4 mmol/L (no code) 3.7 - 5.2 mmol/L 03-10-2018 no information conc 12:47-0400 Protein mass 7.0 g/dL (no code) 6.4 - 8.3 g/dL 03-10-2018 no i nformation conc 12:47 Sodium molar 142 mmol/L (no code) 135 - 145 mmol/L 03-10-2018 n o information conc 12:47-040 Urea nitrogen 16 mg/dL (no code) 7 - 20 mg/dL 03-10-2018 no in formation mass conc 12:47-0400 hematology on 2018-03-10 Basophils Auto 0.0 10*3/uL (no code) 0 - 0.3 10*3/uL 03-10-2018 no information #/vol (Bld) 12:47-040 Basophils/100 0.70 % (no code) 0.5 - 1 % 03-10-2018 no infor mation WBC Auto (Bld) 12:47-040 Eosinophils Auto 0.2 10*3/uL (no code) 0.05 - 0.5 03-10-2018 no information #/vol (Bld) 10*3/uL 12:47-0400 Eosinophils/100 2.5 % (no code) 1 - 4 % 03-10-2018 no inf ormation WBC Auto (Bld) 12:47-040 Erythrocyte 12.8 % (no code) 11.6 - 14.6 % 03-10-2018 no inf ormation distribution 12:47-040 width Auto Ratio (RBC) Hematocrit Auto 40.3 % (L) 36.1 - 50.3 % 03-10-2018 no information Volume Fraction 12:47-0400 (Bld) Hemoglobin mass 14.3 g/dL (no code) 12.1 - 17.2 g/dL 03-10-2018 no information conc (Bld) 12:47-040 Lymphocytes Auto 1.81 10*3/uL (no code) 0.9 - 2.9 03-10-2018 no information #/vol (Bld) 10*3/uL 12:47-0400 Lymphocytes/100 29.9 % (no code) 20 - 40 % 03-10-2018 no inf ormation WBC Auto (Bld) 12:47-040 MCH Auto Entitic 31.8 pg (H) 27 - 31 pg 03-10-2018 no i nformation mass (RBC) 12:47-0400 MCHC Auto mass 35.5 g/dL (no code) 32 - 36 g/dL 03-10-2018 no i nformation conc (RBC) 12:47-040 MCV Auto Entitic 89.6 fL (no code) 80 - 100 fL 03-10-2018 no information volume (RBC) 12:47-0400 Monocytes Auto 0.7 10*3/uL (no code) 0.3 - 0.9 03-10-2018 no in formation #/vol (Bld) 10*3/uL 12:47-0400 Monocytes/100 10.9 % (no code) 2 - 8 % 03-10-2018 no infor mation WBC Auto (Bld) 12:47-0400 Neutrophils Auto 3.40 10*3/uL (no code) 1.7 - 7 10*3/uL 03-10-20 18 no information #/vol (Bld) 12:47-0400 Neutrophils/100 56.0 % (no code) 40 - 60 % 03-10-2018 no inf ormation WBC Auto (Bld) 12:47-0400 Platelet mean 10.3 fL (H) 7.2 - 11.7 fL 03-10-2018 no i nformation volume Auto 12:47-0400 Entitic volume (Bld) Platelets Auto 269 10*3/uL (no code) 150 - 450 03-10-2018 no in formation #/vol (Bld) 10*3/uL 12:47-0400 RBC Auto #/vol 4.50 10*6/uL (no code) 4.2 - 6.1 03-10-2018 no i nformation (Bld) 10*6/uL 12:47-0400 WBC Auto #/vol 6.06 10*3/uL (no code) 3.5 - 10.5 03-10-2018 no information (Bld) 10*3/uL 12:47-0400 other on 2017-02-06 HBsAg Screen Negative (no code) 02-06-2017 Not Available 09:49-0400 ([id number]) Hep A Ab, IgM Negative (no code) 02-06-2017 Not Availabl e 09:49-0400 ([id number]) Hep B Core Ab, Negative (no code) 02-06-2017 Not Availab le IgM 09:49-0400 ([id number]) Hep C Virus Ab <0.1 (no code) 02-06-2017 Not Availab le 09:49-0400 ([id number]) other on 2017-02-02 Albumin BCG dye 4.2 (no code) 02-02-2017 Not Availa ble [Mass/Vol] 12:30-0400 ([id number]) Erythrocyte 13.1 % (no code) 11.6 - 14.6 % 02-02-2017 Not Av ailable distribution 12:30-0400 (21902) width (RBC) [Ratio] GFR/1.73 sq 72 (no code) 90 - 120 02-02-2017 Not Availa ble M.predicted MDRD mL/min/{1.73_m2} mL/min/{1.73_m2} 12:30-0400 ([id number]) (S/P/Bld) [Vol rate/Area] Globulin (S) 2.3 g/dL (no code) 2 - 3.5 g/dL 02-02-2017 Not Av ailable [Mass/Vol] 12:30-0400 ([id number]) HCO3 (P) 18 (L) 02-02-2017 Not Available [Moles/Vol] 12:30-0400 ([id number]) LYME DISEASE AB, <0.80 (no code) 02-02-2017 Not Avail able QUANT, IGM 12:30-0400 (06903) LYME IGG/IGM AB <0.91 (no code) 02-02-2017 Not Availa ble 12:30-0400 ([id number]) M. pneumoniae Ab Negative (no code) 02-02-2017 Not Avail able Ql (S) 12:30-0400 (20826) MCHC (RBC) 34.8 g/dL (no code) 32 - 36 g/dL 02-02-2017 Not Avai lable [Mass/Vol] 12:30-0400 ([id number]) Osmolality Calc 294 (no code) 02-02-2017 Not Availa ble [Osmolality] 12:30-0400 (41679) Platelet mean 10.3 fL (H) 7.2 - 11.7 fL 02-02-2017 Not Available volume (Bld) : (09195) [Entitic vol] RMSF, IGG, EIA Positive (A) 02-02-2017 Not Availab le 12: (88537) RMSF, IGG, IFA 1:64 (H) 02-02-2017 Not Availab le 12: (96621) DAVID MTN 0.12 (no code) 02-02-2017 Not Available SPOTTED FEVER, : (83598) IGM Urate [Mass/Vol] 6.8 mg/dL (no code) 3.5 - 7.2 mg/dL 02-02-2017 Not Available : (34972) metabolic panel on 2017-02-02 ALP [Catalytic 69 U/L (no code) 44 - 147 U/L 02-02-2017 Not Available activity/Vol] : (84546) ALT [Catalytic 92 U/L (H) 4 - 40 U/L 02-02-2017 Not Av ailable activity/Vol] 12: (09315) Anion gap 12 mmol/L (no code) 3 - 11 mmol/L 02-02-2017 Not Avai lable [Moles/Vol] : (91659) AST [Catalytic 49 U/L (H) 10 - 34 U/L 02-02-2017 Not A vailable activity/Vol] : (10337) Bilirubin 1.1 mg/dL (no code) 0.1 - 1.2 mg/dL 02-02-2017 Not Av ailable [Mass/Vol] : (79898) Calcium 9.0 mg/dL (no code) 8.5 - 10.2 mg/dL 02-02-2017 Not A vailable [Mass/Vol] : (37385) Chloride 116 mmol/L (H) 95 - 106 mmol/L 02-02-2017 Not A vailable [Moles/Vol] : (03946) Creatinine 1.08 mg/dL (no code) 02-02-2017 Not Available [Mass/Vol] 12:30 (43640) Glucose 93 mg/dL (no code) 60 - 125 mg/dL 02-02-2017 Not Debra ilable [Mass/Vol] 12: (94191) Potassium 3.8 mmol/L (no code) 3.7 - 5.2 mmol/L 02-02-2017 Not Available [Moles/Vol] 12: (07336) Protein 6.5 g/dL (no code) 6.4 - 8.3 g/dL 02-02-2017 Not Debra ilable [Mass/Vol] 12: (72857) Sodium 142 mmol/L (no code) 135 - 145 mmol/L 02-02-2017 Not Available [Moles/Vol] 12: (59234) Urea nitrogen 15 mg/dL (no code) 7 - 20 mg/dL 02-02-2017 Not A vailable [Mass/Vol] 12: (26774) hematology on 2017-02-02 Basophils (Bld) 0.0 10*3/uL (no code) 0 - 0.3 10*3/uL 02-02-2017 Not Available [#/Vol] 12:0 (79243) Basophils/100 0.40 % (no code) 0.5 - 1 % 02-02-2017 Not Avai lable WBC (Bld) 12: (24634) Eosinophils 0.1 10*3/uL (no code) 0.05 - 0.5 02-02-2017 Not Debra ilable (Bld) [#/Vol] 10*3/uL 12:040 (28685) Eosinophils/100 1.6 % (no code) 1 - 4 % 02-02-2017 Not Av ailable WBC (Bld) 12: (23948) Hematocrit (Bld) 37.9 % (L) 36.1 - 50.3 % 02-02-2017 N ot Available [Volume 12: (93089) fraction] Hemoglobin (Bld) 13.2 g/dL (L) 12.1 - 17.2 g/dL 02-02-2017 Not Available [Mass/Vol] 12:30-0400 (74574) Lymphocytes 0.88 10*3/uL (no code) 0.9 - 2.9 02-02-2017 Not Debra ilable (Bld) [#/Vol] 10*3/uL 12:30-0400 (78774) Lymphocytes/100 18.1 % (no code) 20 - 40 % 02-02-2017 Not Av ailable WBC (Bld) 12:300400 (13654) MCH (RBC) 30.7 pg (no code) 27 - 31 pg 02-02-2017 Not Availab le [Entitic mass] 12:300400 (50854) MCV (RBC) 88.1 fL (no code) 80 - 100 fL 02-02-2017 Not Availa ble [Entitic vol] 12:0400 (39918) Monocytes (Bld) 0.7 10*3/uL (no code) 0.3 - 0.9 02-02-2017 Not Available [#/Vol] 10*3/uL 12:0400 (65211) Monocytes/100 15.1 % (H) 2 - 8 % 02-02-2017 Not Avai lable WBC (Bld) 12:300400 (98869) Neutrophils 3.14 10*3/uL (no code) 1.7 - 7 10*3/uL 02-02-2017 N ot Available (Bld) [#/Vol] 12:300400 (99413) Neutrophils/100 64.8 % (no code) 40 - 60 % 02-02-2017 Not Av ailable WBC (Bld) 12:0400 (65842) Platelets (Bld) 236 10*3/uL (no code) 150 - 450 02-02-2017 Not Available [#/Vol] 10*3/uL 12:300400 (77854) RBC (Bld) 4.30 10*6/uL (no code) 4.2 - 6.1 02-02-2017 Not Avail able [#/Vol] 10*6/uL 12:30-0400 (47884) WBC (Bld) 4.85 10*3/uL (L) 3.5 - 10.5 02-02-2017 Not Avai lable [#/Vol] 10*3/uL 12:30-0400 (60482) urinalysis on 2016-11-23 Clarity (U) Clear (no code) 11-23-2016 Not Available 16:10-0400 (68355) Color (U) Yellow (no code) 11-23-2016 Not Available 16:10-0400 (79180) Epithelial 0-5/HPF (A) 11-23-2016 Not Available cells.squamous 16:10-0400 (88129) LM.HPF (Urine sed) [#/Area] Leukocyte Negative (no code) 11-23-2016 Not Available esterase Test 16:10-0400 (81388) strip Ql (U) Protein (U) Negative (no code) 0 - 20 mg/dL 11-23-2016 Not Debra ilable [Mass/Vol] 16:10-0400 (70172) RBC LM.HPF 0-2/HPF (A) 11-23-2016 Not Available (Urine sed) 16:10-0400 (84974) [#/Area] Specific gravity 1.020 (no code) 11-23-2016 Not Avail able (U) [Rel 16:10-0400 (46632) density] WBC LM.HPF 0-2/HPF (A) 11-23-2016 Not Available (Urine sed) 16:10-0400 (32357) [#/Area] thyroid on 2016-11-23 TSH Qn 1.72 (no code) 11-23-2016 Not Available 16:10-0400 ([id number]) other on 2016-11-23 Albumin BCG dye 4.0 (no code) 11-23-2016 Not Availa ble [Mass/Vol] 16:10-0400 (77586) Bacteria LM Ql Trace (A) 11-23-2016 Not Availab le (Urine sed) 16:10-0400 (40751) Bilirubin N/A (A) 11-23-2016 Not Available Confirm Ql (U) 16:10-0400 (50328) Bilirubin Ql (U) Negative (no code) 11-23-2016 Not Avail able 16:10-0400 (46938) CK [Catalytic 231 U/L (H) 11-23-2016 Not Availabl e activity/Vol] 16:10-0400 (98681) Electrocardiogra Complete (no code) 11-23-2016 Not Avail able ms recorded 16: (22208) Erythrocyte 12.6 % (no code) 11.6 - 14.6 % 11-23-2016 Not Av ailable distribution 16: (83233) width (RBC) [Ratio] GFR/1.73 sq 73 (no code) 90 - 120 11-23-2016 Not Availa ble M.predicted MDRD mL/min/{1.73_m2} mL/min/{1.73_m2} 16:0400 (84052) (S/P/Bld) [Vol rate/Area] Globulin (S) 2.6 g/dL (no code) 2 - 3.5 g/dL 11-23-2016 Not Av ailable [Mass/Vol] 16:10-0400 (92305) Glucose Test Negative (no code) 11-23-2016 Not Available strip (U) 16:0400 (03172) [Mass/Vol] HCO3 (P) 25 (no code) 11-23-2016 Not Available [Moles/Vol] 16:10-0400 (68091) Hemoglobin Ql Negative (no code) 11-23-2016 Not Availabl e (U) 16:100400 (56387) Ketones (U) Negative (no code) 11-23-2016 Not Available [Mass/Vol] 16:10-0400 (63678) MCHC (RBC) 34.7 g/dL (no code) 32 - 36 g/dL 11-23-2016 Not Avai lable [Mass/Vol] 16:10-0400 (84986) Nitrite Ql (U) Negative (no code) 11-23-2016 Not Availab le 16:10-0400 (35532) Osmolality Calc 296 (H) 11-23-2016 Not Availa ble [Osmolality] 16:100400 (84957) pH (U) 6.5 [pH] (no code) 4.6 - 8 [pH] 11-23-2016 Not Avail able 16:10-0400 (09078) Platelet mean 10.6 fL (H) 7.2 - 11.7 fL 11-23-2016 Not Available volume (Bld) 16:100400 (53188) [Entitic vol] Urate [Mass/Vol] 9.5 mg/dL (H) 3.5 - 7.2 mg/dL 11-23-2016 Not Available 16: (08923) Urine Volume Urine Volume (no code) 11-23-2016 Not Availabl e Sufficient 16: (60058) (10mL) Urobilinogen Qn 0.2 (A) 11-23-2016 Not Availa ble (U) {Alon'U}/dL 16: (97438) Yeast.budding Ql No Yeast present (no code) 11-23-2016 Not Available (Urine sed) 16: (66918) metabolic panel on 2016-11-23 ALP [Catalytic 57 U/L (no code) 44 - 147 U/L 11-23-2016 Not Available activity/Vol] 16: (96959) ALT [Catalytic 57 U/L (H) 4 - 40 U/L 11-23-2016 Not Av ailable activity/Vol] 16: () Anion gap 14 mmol/L (no code) 3 - 11 mmol/L 11-23-2016 Not Avai lable [Moles/Vol] 16: (27466) AST [Catalytic 33 U/L (no code) 10 - 34 U/L 11-23-2016 Not A vailable activity/Vol] 16: (59205) Bilirubin 1.1 mg/dL (no code) 0.1 - 1.2 mg/dL 11-23-2016 Not Av ailable [Mass/Vol] 16: (57273) Calcium 9.5 mg/dL (no code) 8.5 - 10.2 mg/dL 11-23-2016 Not A vailable [Mass/Vol] 16: (61537) Chloride 108 mmol/L (no code) 95 - 106 mmol/L 11-23-2016 Not A vailable [Moles/Vol] 16: (34264) Creatinine 1.06 mg/dL (no code) 11-23-2016 Not Available [Mass/Vol] 16: (95793) Glucose 102 mg/dL (no code) 60 - 125 mg/dL 11-23-2016 Not Debra ilable [Mass/Vol] 16:10-0400 (83162) Potassium 4.1 mmol/L (no code) 3.7 - 5.2 mmol/L 11-23-2016 Not Available [Moles/Vol] 16:10-0400 (34103) Protein 6.6 g/dL (no code) 6.4 - 8.3 g/dL 11-23-2016 Not Debra ilable [Mass/Vol] 16:100400 (48373) Sodium 143 mmol/L (no code) 135 - 145 mmol/L 11-23-2016 Not Available [Moles/Vol] 16:10-0400 (58208) Urea nitrogen 16 mg/dL (no code) 7 - 20 mg/dL 11-23-2016 Not A vailable [Mass/Vol] 16:100400 (87487) hematology on 2016-11-23 Basophils (Bld) 0.0 10*3/uL (no code) 0 - 0.3 10*3/uL 11-23-2016 Not Available [#/Vol] 16:10-0400 (37905) Basophils/100 0.30 % (no code) 0.5 - 1 % 11-23-2016 Not Avai lable WBC (Bld) 16:10-0400 (43499) Eosinophils 0.2 10*3/uL (no code) 0.05 - 0.5 11-23-2016 Not Debra ilable (Bld) [#/Vol] 10*3/uL 16:10-0400 (98615) Eosinophils/100 2.8 % (no code) 1 - 4 % 11-23-2016 Not Av ailable WBC (Bld) 16:10-0400 (65056) Hematocrit (Bld) 36.3 % (L) 36.1 - 50.3 % 11-23-2016 N ot Available [Volume 16:100400 (22079) fraction] Hemoglobin (Bld) 12.6 g/dL (L) 12.1 - 17.2 g/dL 11-23-2016 Not Available [Mass/Vol] 16:10-0400 (77026) Lymphocytes 1.61 10*3/uL (no code) 0.9 - 2.9 11-23-2016 Not Debra ilable (Bld) [#/Vol] 10*3/uL 16:10-0400 (52855) Lymphocytes/100 26.4 % (no code) 20 - 40 % 11-23-2016 Not Av ailable WBC (Bld) 16:10-0400 (03387) MCH (RBC) 30.6 pg (no code) 27 - 31 pg 11-23-2016 Not Availab le [Entitic mass] 16:10-0400 (11815) MCV (RBC) 88.1 fL (no code) 80 - 100 fL 11-23-2016 Not Availa ble [Entitic vol] 16:10-0400 (06373) Monocytes (Bld) 0.5 10*3/uL (no code) 0.3 - 0.9 11-23-2016 Not Available [#/Vol] 10*3/uL 16:10-0400 (85957) Monocytes/100 8.8 % (no code) 2 - 8 % 11-23-2016 Not Avai lable WBC (Bld) 16:10-0400 (33787) Neutrophils 3.77 10*3/uL (no code) 1.7 - 7 10*3/uL 11-23-2016 N ot Available (Bld) [#/Vol] 16:10-0400 (64166) Neutrophils/100 61.7 % (no code) 40 - 60 % 11-23-2016 Not Av ailable WBC (Bld) 16:10-0400 (49147) Platelets (Bld) 236 10*3/uL (no code) 150 - 450 11-23-2016 Not Available [#/Vol] 10*3/uL 16:10-0400 (60267) RBC (Bld) 4.12 10*6/uL (L) 4.2 - 6.1 11-23-2016 Not Avail able [#/Vol] 10*6/uL 16:10-0400 (08429) WBC (Bld) 6.11 10*3/uL (no code) 3.5 - 10.5 11-23-2016 Not Avai lable [#/Vol] 10*3/uL 16:10-0400 (88437) cardiac on 2016-11-23 CK.MB [Mass/Vol] 4.2 ng/mL (no code) 0 - 4.3 ng/mL 11-23-2016 N ot Available 16: (61004) Myoglobin 65.7 ng/mL (no code) 11-23-2016 Not Available [Mass/Vol] 16: (41458) Natriuretic 252.30 pg/mL (H) 0 - 100 pg/mL 11-23-2016 Not Available peptide B (Bld) 16: (55341) [Mass/Vol] Troponin ng/mL (no code) 0 - 0.4 ng/mL 11-23-2016 Not Avai lable I.cardiac 16: (27259) [Mass/Vol] other on 2016-10-17 GFR/1.73 sq 77 (no code) 90 - 120 10-17-2016 Not Availa ble M.predicted MDRD mL/min/{1.73_m2} mL/min/{1.73_m2} 10:39-0500 (25191) (S/P/Bld) [Vol rate/Area] HCO3 (P) 27 (no code) 10-17-2016 Not Available [Moles/Vol] 10:39-0500 (91031) Osmolality Calc 297 (H) 10-17-2016 Not Availa ble [Osmolality] 10:39-0500 (55397) metabolic panel on 2016-10-17 Anion gap 14 mmol/L (no code) 3 - 11 mmol/L 10-17-2016 Not Avai lable [Moles/Vol] 10:39-0500 (54293) Calcium 9.6 mg/dL (no code) 8.5 - 10.2 mg/dL 10-17-2016 Not A vailable [Mass/Vol] 10:39-0500 (75973) Chloride 107 mmol/L (no code) 95 - 106 mmol/L 10-17-2016 Not A vailable [Moles/Vol] 10:39-0500 (27192) Creatinine 1.01 mg/dL (no code) 10-17-2016 Not Available [Mass/Vol] 10:39-0500 (42419) Glucose 83 mg/dL (no code) 60 - 125 mg/dL 10-17-2016 Not Debra ilable [Mass/Vol] 10:39-0500 (57757) Potassium 4.9 mmol/L (no code) 3.7 - 5.2 mmol/L 10-17-2016 Not Available [Moles/Vol] 10:39-0500 (65461) Sodium 143 mmol/L (no code) 135 - 145 mmol/L 10-17-2016 Not Available [Moles/Vol] 10:39-0500 (92879) Urea nitrogen 20 mg/dL (no code) 7 - 20 mg/dL 10-17-2016 Not A vailable [Mass/Vol] 10:39-0500 (84983) other on 2016-09-12 CK [Catalytic 116 U/L (no code) 09-12-2016 Not Availabl e activity/Vol] 10:49-0500 (28277) Electrocardiogra Complete (no code) 09-12-2016 Not Avail able ms recorded 10:49-0500 (33742) hematology on 2016-09-12 ESR (Bld) 5 mm/h (no code) 09-12-2016 Not Available [Velocity] 13:16-0500 (24939) cardiac on 2016-09-12 CK.MB [Mass/Vol] 2.4 ng/mL (no code) 0 - 4.3 ng/mL 09-12-2016 N ot Available 10:49-0500 (50661) Myoglobin 40.4 ng/mL (no code) 09-12-2016 Not Available [Mass/Vol] 10:49-0500 (60944) Troponin ng/mL (no code) 0 - 0.4 ng/mL 09-12-2016 Not Avai lable I.cardiac 10:49-0500 (48535) [Mass/Vol] thyroid on 2016-09-11 TSH Qn 0.98 (no code) 09-11-2016 Not Available 12:0500 (12081) other on 2016-09-11 Albumin BCG dye 4.0 (no code) 09-11-2016 Not Availa ble [Mass/Vol] 12:260500 (89584) CK [Catalytic 107 U/L (no code) 09-11-2016 Not Availabl e activity/Vol] 12:0500 (73068) CK [Catalytic 102 U/L (no code) 09-11-2016 Not Availabl e activity/Vol] 15:25-0500 (58684) Electrocardiogra Complete (no code) 09-11-2016 Not Avail able ms recorded 12: () Erythrocyte 12.6 % (no code) 11.6 - 14.6 % 09-11-2016 Not Av ailable distribution 12: () width (RBC) [Ratio] GFR/1.73 sq 100 (no code) 90 - 120 09-11-2016 Not Availa ble M.predicted MDRD mL/min/{1.73_m2} mL/min/{1.73_m2} 12: (24415) (S/P/Bld) [Vol rate/Area] Globulin (S) 2.7 g/dL (no code) 2 - 3.5 g/dL 09-11-2016 Not Av ailable [Mass/Vol] 12: (79388) HCO3 (P) 23 (no code) 09-11-2016 Not Available [Moles/Vol] 12: (24613) MCHC (RBC) 35.0 g/dL (no code) 32 - 36 g/dL 09-11-2016 Not Avai lable [Mass/Vol] 12: (71755) Osmolality Calc 295 (no code) 09-11-2016 Not Availa ble [Osmolality] 12: (09413) Platelet mean 10.5 fL (H) 7.2 - 11.7 fL 09-11-2016 Not Available volume (Bld) 12: (34748) [Entitic vol] metabolic panel on 2016-09-11 ALP [Catalytic 66 U/L (no code) 44 - 147 U/L 09-11-2016 Not Available activity/Vol] 12: (10458) ALT [Catalytic 60 U/L (H) 4 - 40 U/L 09-11-2016 Not Av ailable activity/Vol] 12: (23775) Anion gap 14 mmol/L (no code) 3 - 11 mmol/L 09-11-2016 Not Avai lable [Moles/Vol] 12: (05409) AST [Catalytic 28 U/L (no code) 10 - 34 U/L 09-11-2016 Not A vailable activity/Vol] 12: (58276) Bilirubin 0.9 mg/dL (no code) 0.1 - 1.2 mg/dL 09-11-2016 Not Av ailable [Mass/Vol] 12: (06205) Calcium 8.9 mg/dL (no code) 8.5 - 10.2 mg/dL 09-11-2016 Not A vailable [Mass/Vol] 12: (23320) Chloride 109 mmol/L (no code) 95 - 106 mmol/L 09-11-2016 Not A vailable [Moles/Vol] 12: (43978) Creatinine 0.81 mg/dL (no code) 09-11-2016 Not Available [Mass/Vol] : (41745) Glucose 141 mg/dL (H) 60 - 125 mg/dL 09-11-2016 Not Debra ilable [Mass/Vol] : (68639) Potassium 3.8 mmol/L (no code) 3.7 - 5.2 mmol/L 09-11-2016 Not Available [Moles/Vol] : (97254) Protein 6.7 g/dL (no code) 6.4 - 8.3 g/dL 09-11-2016 Not Debra ilable [Mass/Vol] : (66778) Sodium 142 mmol/L (no code) 135 - 145 mmol/L 09-11-2016 Not Available [Moles/Vol] 12: (62028) Urea nitrogen 13 mg/dL (no code) 7 - 20 mg/dL 09-11-2016 Not A vailable [Mass/Vol] 12: (21405) hematology on 2016-09-11 Basophils (Bld) 0.0 10*3/uL (no code) 0 - 0.3 10*3/uL 09-11-2016 Not Available [#/Vol] 12: (36507) Basophils/100 0.50 % (no code) 0.5 - 1 % 09-11-2016 Not Avai lable WBC (Bld) 12: (37650) Eosinophils 0.1 10*3/uL (no code) 0.05 - 0.5 09-11-2016 Not Debra ilable (Bld) [#/Vol] 10*3/uL 12:0500 (16502) Eosinophils/100 1.9 % (no code) 1 - 4 % 09-11-2016 Not Av ailable WBC (Bld) 12: (07141) Hematocrit (Bld) 40.0 % (L) 36.1 - 50.3 % 09-11-2016 N ot Available [Volume 12: (12724) fraction] Hemoglobin (Bld) 14.0 g/dL (no code) 12.1 - 17.2 g/dL 09-11-2016 Not Available [Mass/Vol] 12:0500 (70052) Lymphocytes 1.44 10*3/uL (no code) 0.9 - 2.9 09-11-2016 Not Debra ilable (Bld) [#/Vol] 10*3/uL 12:0500 (40517) Lymphocytes/100 25.0 % (no code) 20 - 40 % 09-11-2016 Not Av ailable WBC (Bld) 12:0500 (28158) MCH (RBC) 30.4 pg (no code) 27 - 31 pg 09-11-2016 Not Availab le [Entitic mass] 12:0500 (65318) MCV (RBC) 87.0 fL (no code) 80 - 100 fL 09-11-2016 Not Availa ble [Entitic vol] 12:0500 (72296) Monocytes (Bld) 0.4 10*3/uL (no code) 0.3 - 0.9 09-11-2016 Not Available [#/Vol] 10*3/uL 12:0500 (30059) Monocytes/100 7.7 % (no code) 2 - 8 % 09-11-2016 Not Avai lable WBC (Bld) 12:0500 (33570) Neutrophils 3.73 10*3/uL (no code) 1.7 - 7 10*3/uL 09-11-2016 N ot Available (Bld) [#/Vol] 12:0500 (40500) Neutrophils/100 64.9 % (no code) 40 - 60 % 09-11-2016 Not Av ailable WBC (Bld) 12: (81019) Platelets (Bld) 244 10*3/uL (no code) 150 - 450 09-11-2016 Not Available [#/Vol] 10*3/uL 12: (00737) RBC (Bld) 4.60 10*6/uL (no code) 4.2 - 6.1 09-11-2016 Not Avail able [#/Vol] 10*6/uL 12: (74349) WBC (Bld) 5.75 10*3/uL (no code) 3.5 - 10.5 09-11-2016 Not Avai lable [#/Vol] 10*3/uL 12: (40411) cardiac on 2016-09-11 CK.MB [Mass/Vol] 2.4 ng/mL (no code) 0 - 4.3 ng/mL 09-11-2016 N ot Available 12: (00680) CK.MB [Mass/Vol] 2.3 ng/mL (no code) 0 - 4.3 ng/mL 09-11-2016 N ot Available 15:0500 (77121) Myoglobin 31.3 ng/mL (no code) 09-11-2016 Not Available [Mass/Vol] 12: (68263) Myoglobin 34.1 ng/mL (no code) 09-11-2016 Not Available [Mass/Vol] 15:0500 (26018) Troponin ng/mL (no code) 0 - 0.4 ng/mL 09-11-2016 Not Avai lable I.cardiac 12: (68775) [Mass/Vol] Troponin ng/mL (no code) 0 - 0.4 ng/mL 09-11-2016 Not Avai lable I.cardiac 15:0500 (77510) [Mass/Vol] Vital Signs The data below is from unstructured sources Vital Response Date/Time Pulse Rate (adult) 71 bpm (60 - 90) 03/13/2016 12:38pm Respiratory Rate 16 bpm (12 - 24) 03/13/2016 12:38pm O2 Sat by Pulse Oximetry 97 % (88 - 100) 03/13/2016 12:38pm Blood Pressure 152/92 mm Hg 03/13/2016 12:38pm Blood Pressure Mean 112 mm Hg 03/13/2016 12:38pm Pain Numeric Pain Scale 0-No Pain 03/13/2016 12:38pm Height (Feet) 5 feet 12:38pm Height (Inches) 11.00 inches 03/13/2016 12:38pm Height (Calculated Centimeters) 180. 713446 cm 03/13/2016 12:38pm Weight (Pounds) 230 pounds 03/13/2016 12:38pm Weight (Ounces) 1.0 oz 0 03/13/2016 12:38pm Weight (Calculated Grams) 906912.596 gm 03/13/2016 12:38pm Weight (Calculated Kilograms) 104.35 4596 kilograms 03/13/2016 12:38pm Calculated BMI 38.27 12:38pm Vital Response Date/Time Temperature (Fahrenheit) 97.7 degree s F (97.6 - 99.5) 03/21/2016 5:00pm Temperature (Calculated Celsius) 36. 90245 degrees C (36.4 - 37.5) 03/21/2016 5:00pm Temperature Source Temporal 03/21/2016 5:00pm Pulse Rate (adult) 74 bpm (60 - 90) 03/21/2016 5:00pm Respiratory Rate 16 bpm (12 - 24) 03/21/2016 5:00pm O2 Sat by Pulse Oximetry 97 % (88 - 100) 03/21/2016 5:00pm Blood Pressure 180/99 mm Hg 03/21/2016 5:00pm Blood Pressure Mean 113 mm Hg 03/21/2016 12:00pm Pain Numeric Pain Scale 3 5:19pm Pain Intensity 3 2015 5:00pm Height (Feet) 5 feet 12/2015 12:00pm Height (Inches) 11.00 inches 03/21/2016 12:00pm Height (Calculated Centimeters) 180. 602907 cm 03/21/2016 12:00pm Weight (Pounds) 230 pounds 03/21/2016 12:00pm Weight (Ounces) 1.0 oz 0 03/21/2016 12:00pm Weight (Calculated Grams) 016462.60 gm 03/21/2016 12:00pm Weight (Calculated Kilograms) 104.35 4596 kilograms 03/21/2016 12:00pm Calculated BMI 32.1 12/2015 12:00pm Capillary Refill Capillary Refill Less Than 3 Seconds 03/21/2016 12:00pm Vital Response Date/Time Temperature (Fahrenheit) 97.2 degree s F (97.6 - 99.5) Temperature (Calculated Celsius) 36. 95975 degrees C (36.4 - 37.5) Temperature Source Tympanic Pulse Rate (adult) 86 bpm (60 - 90) Respiratory Rate 18 bpm (12 - 24) O2 Sat by Pulse Oximetry 92 % (88 - 100) Blood Pressure 117/73 mm Hg Pain Pain Intensity 3 Height (Feet) 5 feet Height (Inches) 11.00 inches Height (Calculated Centimeters) 180. 558423 cm Weight (Pounds) 221 pounds Weight (Ounces) 1.0 oz Weight (Calculated Grams) 386603.264 gm Weight (Calculated Kilograms) 100.27 2264 kilograms Calculated BMI 30.82 Vital Response Date/Time Temperature (Fahrenheit) 97.2 degree s F (97.6 - 99.5) Temperature (Calculated Celsius) 36. 88038 degrees C (36.4 - 37.5) Temperature Source Tympanic Pulse Rate (adult) 86 bpm (60 - 90) Respiratory Rate 18 bpm (12 - 24) O2 Sat by Pulse Oximetry 92 % (88 - 100) Blood Pressure 117/73 mm Hg Pain Pain Intensity 3 Height (Feet) 5 feet Height (Inches) 11.00 inches Height (Calculated Centimeters) 180. 281637 cm Weight (Pounds) 221 pounds Weight (Ounces) 1.0 oz Weight (Calculated Grams) 479342.264 gm Weight (Calculated Kilograms) 100.27 2264 kilograms Calculated BMI 30.82 Interventions No Information Plan of Treatment The data below is from unstructured sources Discharge Date 03/13/16 1:21pm Prescriptions See Medication Section Discharge Date 03/21/16 5:30pm Instructions/Education Provided HIEU BAUER INSTRUCTIONS POSTOP DR. HUTTON-POST OP INSTRUCTIONS Prescriptions See Medication Section Discharge Date 10/18/14 6:00pm Disposition 30 STILL A PATIENT Instructions/Education Provided ABSC ESS Forms Provided PDI Surgical Prescriptions See Medications Sectio n ERIN GonzalesEW DDS (Unspecif ied) Address: [address] [place] [address], [facility] [place] [address] [phone] Reason(s) for Referral: SEE DR. MURO ThursdayOctober AT 3:00 PM Discharge Date 10/18/14 6:00pm Disposition 30 STILL A PATIENT Instructions/Education Provided ABSC ESS Forms Provided PDI Surgical Prescriptions See Medications Sectio n Referrals DALIA MURO DDS (Unspecif ied) Address: [address] [place] [address], [facility] [address] [phone] Reason(s) for Referral: SEE DR. MURO ThursdayOctober AT 3:00 PM Goals No Information Social History No Information Functional Status The data below is from unstructured sources Query Response Date Adebayo rded Comprehension Ability Understands Co ncepts October 16, 2014 3:30pm Mental Status No Information Encounters Encounter Normalized Encounter Encounter Diagnosis Care Provi vitor Organization Date Type 05-14-2018 Patient encounter no information no name no or ganization name - 05-14-2018 03-10-2018 Patient encounter no information no name no or ganization name - 03-11-2018 12-13-2019 Patient encounter no information STEPHANI JOAHNNA (no [facility] [address] (no 12-13-2019 phone) 12-09-2019 Patient encounter no information STEPHANI JOHANNA (no [facility] [address] (no 12-09-2019 phone) 12-09-2019 Patient encounter no information STEPHANI JOHANNA (no [facility] [address] (no 12-09-2019 phone) 11-17-2019 Patient encounter no information STEPHANI JOHANNA (no [facility] [address] (no 11-17-2019 phone) 09-21-2019 Patient encounter no information STEPHANI JOHANNA (no [facility] [address] (no 09-21-2019 phone) 08-23-2019 Patient encounter no information no name no or ganization name - procedure 08-23-2019 08-19-2019 Patient encounter no information no name no or ganization name - procedure 08-19-2019 07-25-2019 Patient encounter no information HIMANSHU CORNELIUS [facility] [address] procedure (no phone) [facility] (no phone) 07-19-2019 Patient encounter no information HIMANSHU SANDOVAL AR [facility] [address] procedure (no phone) [facility] (no phone) 06-24-2019 Patient encounter no information no name no or ganization name - procedure 06-24-2019 05-18-2019 Patient encounter no information no name no or ganization name - procedure 05-19-2019 02-04-2019 Patient encounter no information no name no or ganization name - procedure 03-08-2019 01-21-2019 Patient encounter no information no name no or ganization name - procedure 01-22-2019 02-05-2018 Patient encounter no information no name no or ganization name - procedure 02-06-2018 12-29-2017 Patient encounter no information no name no or ganization name - procedure 12-30-2017 12-11-2017 Patient encounter no information no name no or ganization name - procedure 12-12-2017 11-23-2017 Patient encounter no information no name no or ganization name - procedure 11-24-2017 11-15-2017 Patient encounter no information no name no or ganization name - procedure 11-16-2017 09-24-2017 Patient encounter no information no name no or ganization name - procedure 09-25-2017 07-15-2017 Patient encounter no information no name no or ganization name - procedure 07-16-2017 05-06-2017 Patient encounter no information no name no or ganization name - procedure 05-07-2017 02-06-2017 Patient encounter no information no name no or ganization name - procedure 02-07-2017 02-02-2017 Patient encounter no information no name no or ganization name - procedure 02-03-2017 01-05-2017 Patient encounter no information HIMANSHU CORNELIUS [facility] [address] procedure (no phone) [facility] (no phone) 11-23-2016 Patient encounter no information no name no or ganization name - procedure 11-23-2016 10-22-2016 Patient encounter no information no name no or ganization name - procedure 10-23-2016 10-17-2016 Patient encounter no information no name no or ganization name - procedure 10-18-2016 10-13-2016 Patient encounter no information no name no or ganization name procedure 10-13-2016 Patient encounter no information NOMAN GALLARDO MA FSCA I [facility] [address] procedure (no phone) [facility] (no phone) 09-24-2016 Patient encounter no information no name no or ganization name procedure 09-24-2016 Patient encounter no information NOMAN GALLARDO MA FSCA I [facility] [address] procedure (no phone) [facility] (no phone) 09-23-2016 Patient encounter no information no name no or ganization name procedure 09-23-2016 Patient encounter no information NOMAN GALLARDO MA FSCA I [facility] [address] procedure (no phone) [facility] (no phone) 09-12-2016 Patient encounter no information no name no or ganization name - procedure 09-12-2016 09-11-2016 Patient encounter no information no name no or ganization name - procedure 09-11-2016 03-21-2016 Patient encounter no information ALISA Q BRENNEN DPM (no [facility] [address] - procedure phone) [facility] 03-21-2016 (no phone) 03-13-2016 Patient encounter no information ALISA Q BRENNEN DPM (no [facility] [address] - procedure phone) [facility] 03-13-2016 (no phone) no information Encounter for other no name (no phone) preprocedural examination Medical Equipment No Information Payers Normalized Payer Value Private Health Insurance no information [place] no information Advance Directives Directive Response Recor ded Date/Time Advance Directives No 12:38pm Health Care Power of Deicer Finisher No 03/13/16 12:38pm Organ Donor Yes 03/13/16 12:38pm Resuscitation Status Full Code 03/13/16 12:38pm Directive Response Recor ded Date/Time Advance Directives No 12:00pm Health Care Power of Deicer Finisher No 03/21/16 12:00pm Organ Donor Yes 03/21/16 12:00pm Resuscitation Status Full Code 03/21/16 12:00pm Directive Response Recor ded Date/Time Advance Directives No 3:58pm Health Care Power of Deicer Finisher No 10/16/14 3:58pm Organ Donor Yes 10/16/14 3:58pm Resuscitation Status Full Code 10/16/14 3:58pm Discharge Instructions No hospital discharge instructions.No hospital discharge instructions.No hospital discharge instructions. Additional Source Comments This clinical document has been generated using [employer] software that has been certified by the Office of the National Coordinator for Health Information Technology (ONC 15.99.04.3023.Diam.31.00.0.239126) and the National Committee for Target Trimmer (NCQA, as an eMeasure certified technology). FOR RECORDS PERTAINING TO PATIENTS WHO ARE OR HAVE BEEN ENROLLED IN A CHEMICAL D EPENDENCY/SUBSTANCE ABUSE PROGRAM, SOME INFORMATION MAY BE OMITTED. This clinica l summary was aggregated from multiple sources. Caution should be exercised in using it in the provision of clinical care. This summary normalizes information from multiple sources, and as a consequence, information in this document may ma terially change the coding, format and clinical context of patient data. In elías tion, data may be omitted in some cases. CLINICAL DECISIONS SHOULD BE BASED ON T HE PRIMARY CLINICAL RECORDS. [employer] provides no warranty or guara ntee of the accuracy or completeness of information in this document.The followi ng information is based on time limited clinical information
--- OUTSIDE RECORDS SUMMARY | 2019-12-27 07:19 | XMS REPORT | Clinical Summary ---
Author Author [facility] Organization [facility] Address Unknown Phone Unavailable Care Team Providers Care Plating Operator Name Role Phone Oralia Geronimo MD PCP Zach Bello DO Unavailable Source Comments Some departments are not documenting in the electronic medical record. If you d o not see the information that you expected, contact Release of Information in [facility] [employer] Information Management department at [phone] for further assistan ce in locating additional records.[facility] Allergies Comments Active Allergy Reactions Severity Noted Date Penicillins HIVES Medium 08/31/2015 Medications End Date Status Medication Sig Dispensed Refills Start Date Active IBUPROFEN (ADVIL PO) Take 600 mg 0 by mouth as Needed. Active acetaminophen/codeine Take 1 Tab by 0 (TYLENOL NO.2) 300/15 mg mouth every 4 tablet hours as needed for Pain. Active CALCIUM CARBONATE Take 500 mg 0 (CALCIUM 500 PO) by mouth daily. Active ASCORBATE CALCIUM Take 500 mg 0 (VITAMIN C PO) by mouth daily. Active vitamin E 100 unit Take 100 0 capsule Units by mouth daily. Active DOCOSAHEXANOIC ACID/EPA Take 300 mg 0 (FISH OIL PO) by mouth daily. Active potassium chloride SR Take 10 mEq 0 (K-DUR) 10 mEq tablet by mouth daily. Active hydrochlorothiazide Take 12.5 mg 0 (HYDRODIURIL) 12.5 mg tab by mouth tablet daily. Active magnesium oxide (MAG-OX) Take 400 mg 0 400 mg tablet by mouth daily. Active enalapril (VASOTEC) 10 mg Take 10 mg by 0 tablet mouth daily. Active enalapril (VASOTEC) 5 mg Take 5 mg by 0 tablet mouth at bedtime daily. Active loratadine (CLARITIN) 10 Take 10 mg by 0 mg tablet mouth daily. Active gabapentin (NEURONTIN) Take 1 Cap by 90 Cap 5 0 300 mg capsule mouth three 6 times daily. Active Problems Problem Noted Date Low back pain 08/31/2015 Pain in both lower extremities 08/31/2015 Muscle cramping 08/31/2015 Family History Medical History Relation Name Comments Cancer Father Diabetes Father Hypertension Father Diabetes Maternal Grandmother Diabetes Mother Diabetes Paternal Grandmother Relation Name Status Comments Father Maternal Grandmother Mother Paternal Grandmother Social History Date Tobacco Use Types Packs/Day Years Used Quit: 08/17/2011 Former Smoker Cigarettes 1 23 Drinks/Week oz/Week Comments Alcohol Use 0 Standard drinks or equivalent 0.0 social rarely Yes Sex Assigned at Date Recorded Not on file Industry Job Start Date Occupation Not on file Not on file Not on file Travel End Travel History Travel Start No recent travel history available. Last Filed Vital Signs Reading Time Taken Comments Vital Sign 148/93 08/31/2015 9:54 AM PLASTER MAKER Blood Pressure 79 08/31/2015 9:54 AM PLASTER MAKER Pulse 36.9 C (98.4 F) 08/31/2015 9:54 AM PLASTER MAKER Temperature 16 08/31/2015 9:54 AM PLASTER MAKER Respiratory Rate 94% 08/31/2015 9:54 AM PLASTER MAKER Oxygen Saturation - - Inhaled Oxygen Concentration 103 kg (227 lb) 08/31/2015 9:54 AM PLASTER MAKER Weight 180.3 cm (5' 11") 08/31/2015 9:54 AM PLASTER MAKER Height 31.66 08/31/2015 9:54 AM PLASTER MAKER Body Mass Index Plan of Treatment Health Maintenance Due Date Last Done Comments HIV SCREENING 02/28/1979 DTAP/TDAP VACCINES (1 - 02/28/1982 Tdap) HEPATITIS C SCREENING 02/28/1982 PHYSICAL (COMPREHENSIVE) 02/28/1982 EXAM COLORECTAL CANCER 02/28/2014 SCREENING SHINGLES RECOMBINANT 02/28/2014 VACCINE (1 of 2) INFLUENZA VACCINE 05/17/2020 Results Not on filefrom Last 3 Months Insurance Type Payer Benefit Subscriber ID Effective Phone Address Plan / Dates Group AETNA AETNA xxxxxxxxxx 2015-P PPO/ELECT/ resent MGD CHOICE [phone] Advance Directives 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
--- OUTSIDE RECORDS SUMMARY | 2019-12-27 07:19 | XMS REPORT | Continuity of Care Document ---
Demographics Preferred Language Unknown Marital Status Unknown Rastafari Affiliation Unknown Race Unknown Ethnic Group Unknown Author Organization Unknown Address Unknown Phone Unavailable Allergies Active Description Code Type Severity Reaction Onset Reported/Identified Relationship to Patient Clinical Status Yes PENICILLIN G BENZATHINE PENICILLIN G BENZATH UNKNOWN Yes PENICILLIN G BENZATHINE UNKNOWN UNKNOWN Yes Penicillins [id number] Drug Aller gy Unknown N/A 03/13/2016 Medications Medication Packaging Start Date St op Date Route Dosage Sig LISINOPRIL TAB 10 MG (ZESTRIL) MG 09/11/2016 09/11/2016 ONCE&1230 LISINOPRIL TAB 10 MG (ZESTRIL) MG 09/12/2016 09/18/2016 Daily&0900 Problems Date Dx Coded Attending Type Code Diagnosis Diagnosed By 05/04/2012 Ot 327.23 OBS TRUCTIVE SLEEP APNEA (ADULT) (PEDIATR 10/18/2014 Ot 521.00 UNS PEC DENTAL CARIES 10/18/2014 Ot 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 2 ENCOUNTER FOR SCREENING FOR OTHER BACTER 03/21/2016 BRENNEN DPM, ALISA Q Ot M66. 88 SPONTANEOUS RUPTURE OF OTHER TENDONS, OT 03/24/2016 BRENNEN DPM, ALISA Q Ot M66. 88 SPONTANEOUS RUPTURE OF OTHER TENDONS, OT 03/25/2016 BERNNEN DPM, ALISA Q Ot M66. 88 SPONTANEOUS RUPTURE OF OTHER TENDONS, OT 09/11/2016 Nahomy Wright 272.4 OTHER AND UNSPECIFIED HYPERLIPIDEMIA 09/11/2016 Nahomy Wright 401.0 MALIGNANT ESSENTIAL HYPERTENSION 09/11/2016 Nahomy Wright E78.5 HYPERLIPIDEMIA, UNSPECIFIED 09/11/2016 Nahomy Wright I10 ESSENTIAL (PRIMARY) HYPERTENSION 09/12/2016 Bj Bourne 668.81 OTHER COMPLICATIONS OF ANESTHESIA OR OTHER SEDATION IN LABOR AND DELIVERY, DELIVERED, WITH OR WITHOUT MENTION OF ANTEPARTUM CONDITION 09/12/2016 Bj Bourne R51 HEADACHE 09/13/2016 Bj Bourne 401.9 UNSPECIFIED ESSENTIAL HYPERTENSION 09/13/2016 Bj Bourne A I10 ESSENTIAL (PRIMARY) HYPERTENSION 09/13/2016 Bj Bourne W 272.2 MIXED HYPERLIPIDEMIA 09/13/2016 FranBj enciso W E78.2 MIXED HYPERLIPIDEMIA 09/13/2016 Bj Bourne W 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, UNSPECIFIED 09/13/2016 Bj Bourne 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 09/24/2016 PAULINA LABOY FACC, ALI FACP CCDS Ot E78.4 OTHER HYPERLIPIDEMIA 09/24/2016 PAULINA LABOY FACC, ALI FACP CCDS Ot I10 ESSENTIAL (PRIMARY) HYPERTENSION 09/24/2016 PAULINA LABOY FACC, ALI FACP CCDS Ot R94.31 ABNORMAL ELECTROCARDIOGRAM [ECG] [EKG] 09/24/2016 PAULINA LABOY FACC, ALI FACP CCDS Ot Z87.891 PERSONAL HISTORY OF NICOTINE DEPENDENCE 09/25/2016 PAULINA LABOY FACC, ALI FACP CCDS Ot R51 HEADACHE 10/14/2016 PAULINA LABOY FACC, ALI FACP CCDS Ot E78.4 OTHER HYPERLIPIDEMIA 10/14/2016 PAULINA LABOY FACC, ALI FACP CCDS Ot I10 ESSENTIAL (PRIMARY) HYPERTENSION 10/14/2016 PAULINA LABOY FACC, ALI FACP CCDS Ot R51 HEADACHE 10/14/2016 PAULINA LABOY FACC, ALI FACP CCDS Ot R94.31 ABNORMAL ELECTROCARDIOGRAM [ECG] [EKG] 10/14/2016 PAULINA LABOY FACC, NOMAN FACP CCDS Ot Z87.891 PERSONAL HISTORY OF NICOTINE DEPENDENCE 10/19/2016 PAULINA LABOY FACC, ALI FACP CCDS Ot E78.4 OTHER HYPERLIPIDEMIA 10/19/2016 PAULINA LABOY FACC, ALI FACP CCDS Ot I10 ESSENTIAL (PRIMARY) HYPERTENSION 10/19/2016 PAULINA LABOY FACC, ALI FACP CCDS Ot R51 HEADACHE 10/19/2016 PAULINA LABOY FACC, ALI FACP CCDS Ot R94.31 ABNORMAL ELECTROCARDIOGRAM [ECG] [EKG] 10/19/2016 PAULINA LABOY FACC, ALI FACP CCDS Ot Z87.891 PERSONAL HISTORY OF NICOTINE DEPENDENCE 11/23/2016 Bj Bourne 274.00 GOUTY ARTHROPATHY, UNSPECIFIED 11/23/2016 Steffen Bj W 782.3 EDEMA 11/23/2016 Bj Bourne A M10.071 IDIOPATHIC GOUT, RIGHT ANKLE AND FOOT 11/23/2016 Bj Bourne W M10.072 IDIOPATHIC GOUT, LEFT ANKLE AND FOOT 11/23/2016 FranzariaBj W R60.0 LOCALIZED EDEMA 07/15/2017 W 724.2 LUMBAGO 07/15/2017 W 799.89 OTH ER ILL-DEFINED CONDITIONS 07/15/2017 W B34.9 DOMONIQUE L INFECTION, UNSPECIFIED 07/15/2017 W M54.5 LOW BACK PAIN 09/24/2017 Juanpablo Oralia W 724.1 PAIN IN THORACIC SPINE 09/24/2017 Juanpablo Oralia W M54.6 PAIN IN THORACIC SPINE 09/24/2017 W 724.1 PAIN IN THORACIC SPINE 09/24/2017 W M54.6 PAIN IN THORACIC SPINE 09/24/2017 Oralia Geronimo W 724.1 PAIN IN THORACIC SPINE 09/24/2017 Juanpablo Oralia W M54.6 PAIN IN THORACIC SPINE 11/15/2017 W 477 ALLERG IC RHINITIS 11/15/2017 W J30.9 ALFREDO RGIC RHINITIS, UNSPECIFIED 11/23/2017 A 466.0 ACUT E BRONCHITIS 11/23/2017 A J20.9 ACUT E BRONCHITIS, UNSPECIFIED 12/11/2017 A 782.1 RASH AND OTHER NONSPECIFIC SKIN ERUPTION 12/11/2017 A R21 RASH A ND OTHER NONSPECIFIC SKIN ERUPTION 12/29/2017 Oralia Geronimo 919.4 INSECT BITE, NONVENOMOUS, OF OTHER, MULTIPLE, AND UNSPECIFIED SITES, WITHOUT MENTION OF INFECTION 12/29/2017 Oralia Geronimo T07 UNSPECIFIED MULTIPLE INJURIES 12/29/2017 Oralia Geronimo 782.1 RASH AND OTHER NONSPECIFIC SKIN ERUPTION 12/29/2017 Oralia Geronimo 919.4 INSECT BITE, NONVENOMOUS, OF OTHER, MULTIPLE, AND UNSPECIFIED SITES, WITHOUT MENTION OF INFECTION 12/29/2017 Oralia Greonimo R21 RASH AND OTHER NONSPECIFIC SKIN ERUPTION 12/29/2017 Oralia Geronimo T07 UNSPECIFIED MULTIPLE INJURIES 12/29/2017 W 782.1 RASH AND OTHER NONSPECIFIC SKIN ERUPTION 12/29/[address] BITE, NONVENOMOUS, OF OTHER, MULTIPLE, AND UNSPECIFIED SITES, WITHOUT MENTION OF INFECTION 12/29/2017 W R21 RASH A ND OTHER NONSPECIFIC SKIN ERUPTION 12/29/2017 W T07 UNSPEC IFIED MULTIPLE INJURIES 12/29/2017 Oralia Geronimo W 782.1 RASH AND OTHER NONSPECIFIC SKIN ERUPTION 12/29/2017 Oralia Geronimo W 919.4 INSECT BITE, NONVENOMOUS, OF OTHER, MULTIPLE, AND UNSPECIFIED SITES, WITHOUT MENTION OF INFECTION 12/29/2017 Oralia Geronimo W R21 RASH AND OTHER NONSPECIFIC SKIN ERUPTION 12/29/2017 Oralia Geronimo W T07 UNSPECIFIED MULTIPLE INJURIES 02/05/2018 A 724.2 LUMBAGO 02/05/[address] LIAISON MP OF LIMB 02/05/2018 A M54.5 LOW BACK PAIN 02/05/2018 W R25.2 CRAM P AND SPASM 03/10/2018 A 787.91 CELE RRHEA 03/10/2018 A R19.7 DIAR CLARK, UNSPECIFIED 05/14/2018 Solomon Lau W 787.91 DIARRHEA 05/14/2018 Solomon Lau 789.03 ABDOMINAL PAIN, RIGHT LOWER QUADRANT 05/14/2018 Solomon Lau W 848.8 OTHER SPECIFIED SITES OF SPRAINS AND STRAINS 05/14/2018 Solomon Lau R10.31 RIGHT LOWER QUADRANT PAIN 05/14/2018 Solomon Lau W R19.7 DIARRHEA, UNSPECIFIED 05/14/2018 Solomon Lau W S39.01 1 STRAIN OF MUSCLE, FASCIA AND TENDON OF ABDOMEN 01/21/2019 W 724.1 PAIN IN THORACIC SPINE 01/21/2019 W 724.2 LUMBAGO 01/21/2019 W 786.59 OTH ER CHEST PAIN 01/21/2019 W M54.5 LOW BACK PAIN 01/21/2019 W M54.6 PAIN IN THORACIC SPINE 01/21/2019 W R07.81 PLE URODYNIA 03/08/2019 W 724.2 LUMBAGO 03/08/2019 W M54.5 LOW BACK PAIN 05/18/2019 Nahomy Wright W 389 HEARING LOSS 05/18/2019 Nahomy Wright W H91.90 UNSPECIFIED HEARING LOSS, UNSPECIFIED EAR 05/18/2019 Brokob, Nahomy W 388.3 TINNITUS 05/18/2019 Brokob, Nahomy W 389 HEARING LOSS 05/18/2019 Brokob, Nahomy W H91.90 UNSPECIFIED HEARING LOSS, UNSPECIFIED EAR 05/18/2019 Brokob, Nahomy W H93.19 TINNITUS, UNSPECIFIED EAR 05/18/2019 Brokob, Nahomy W 388.3 TINNITUS 05/18/2019 Brokob, Nahomy W 389 HEARING LOSS 05/18/2019 Brokob, Nahomy W H91.90 UNSPECIFIED HEARING LOSS, UNSPECIFIED EAR 05/18/2019 Brokob, Nahomy W H93.19 TINNITUS, UNSPECIFIED EAR 07/18/2019 PAULINA LABOY FACC, ALI FACP CCDS Ot R51 HEADACHE 07/18/2019 PAULINA LABOY FACC, ALI FACP CCDS Ot E78.4 OTHER HYPERLIPIDEMIA 07/18/2019 PAULINA LABOY FACC, ALI FACP CCDS Ot I10 ESSENTIAL (PRIMARY) HYPERTENSION 07/18/2019 PAULINA LABOY FACC, ALI FACP CCDS Ot R94.31 ABNORMAL ELECTROCARDIOGRAM [ECG] [EKG] 07/18/2019 PAULINA LABOY FACC, ALI FACP CCDS Ot Z87.891 PERSONAL HISTORY OF NICOTINE DEPENDENCE 07/18/2019 PAULINA LABOY FACC, ALI FACP CCDS Ot E78.4 OTHER HYPERLIPIDEMIA 07/18/2019 PAULINA LABOY FACC, ALI FACP CCDS Ot I10 ESSENTIAL (PRIMARY) HYPERTENSION 07/18/2019 PAULINA LABOY FACC, ALI FACP CCDS Ot R51 HEADACHE 07/18/2019 PAULINA LABOY FACC, ALI FACP CCDS Ot R94.31 ABNORMAL ELECTROCARDIOGRAM [ECG] [EKG] 07/18/2019 PAULINA LABOY FACC, ALI FACP CCDS Ot Z87.891 PERSONAL HISTORY OF NICOTINE DEPENDENCE 07/18/2019 HIMANSHU SANDOVAL LANGUAGE TUTOR Ot 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 07/18/2019 HIMANSHU SANDOVAL LANGUAGE TUTOR Ot G47.39 OTHER SLEEP APNEA 07/18/2019 HIMANSHU SANDOVAL LANGUAGE TUTOR Ot I 10 ESSENTIAL (PRIMARY) HYPERTENSION 07/18/2019 HIMANSHU SANDOVAL LANGUAGE TUTOR Ot R 51 HEADACHE 07/18/2019 BAIMA, HIMANSHU L LANGUAGE TUTOR Ot Z79.891 MCFP (CURRENT) USE OF OPIATE ANALGE 07/29/2019 LORI HIMANSHU L LANGUAGE TUTOR Ot E78.5 HYPERLIPIDEMIA, UNSPECIFIED 07/29/2019 BAIMA, HIMANSHU L LANGUAGE TUTOR Ot G47.33 OBSTRUCTIVE SLEEP APNEA (ADULT) (PEDIATR 07/29/2019 BAIMA, HIMANSHU L LANGUAGE TUTOR Ot I 10 ESSENTIAL (PRIMARY) HYPERTENSION 07/29/2019 BAIMA, HIMANSHU L LANGUAGE TUTOR Ot R00.2 PALPITATIONS 07/29/2019 BAIMA, HIMANSHU L LANGUAGE TUTOR Ot R07.89 OTHER CHEST PAIN 07/31/2019 BAIMA, HIMANSHU L LANGUAGE TUTOR Ot E78.5 HYPERLIPIDEMIA, UNSPECIFIED 07/31/2019 BAIMA, HIMANSHU L LANGUAGE TUTOR Ot G47.33 OBSTRUCTIVE SLEEP APNEA (ADULT) (PEDIATR 07/31/2019 BAIMA, HIMANSHU L LANGUAGE TUTOR Ot I 10 ESSENTIAL (PRIMARY) HYPERTENSION 07/31/2019 BAIMA, HIMANSHU L LANGUAGE TUTOR Ot R00.2 PALPITATIONS 07/31/2019 BAIMA, HIMANSHU L LANGUAGE TUTOR Ot R07.89 OTHER CHEST PAIN 12/23/2019 PAULINA LABOY [facility], ALI FACP CCDS Ot R51 HEADACHE 12/23/2019 PAULINA LABOY [facility], ALI FACP CCDS Ot E78.4 OTHER HYPERLIPIDEMIA 12/23/2019 PAULINA LABOY [facility], ALI FACP CCDS Ot I10 ESSENTIAL (PRIMARY) HYPERTENSION 12/23/2019 PAULINA LABOY [facility], ALI FACP CCDS Ot R94.31 ABNORMAL ELECTROCARDIOGRAM [ECG] [EKG] 12/23/2019 PAULINA LABOY [facility], ALI FACP CCDS Ot Z87.891 PERSONAL HISTORY OF NICOTINE DEPENDENCE 12/23/2019 PAULINA LABOY [facility], ALI FACP CCDS Ot E78.4 OTHER HYPERLIPIDEMIA 12/23/2019 PAULINA LABOY [facility], ALI FACP CCDS Ot I10 ESSENTIAL (PRIMARY) HYPERTENSION 12/23/2019 PAULINA LABOY FACC, ALI FACP CCDS Ot R51 HEADACHE 12/23/2019 PAULINA LABOY [facility], ALI FACP CCDS Ot R94.31 ABNORMAL ELECTROCARDIOGRAM [ECG] [EKG] 12/23/2019 PA[facility]INA LABOY [facility], ALI FACP CCDS Ot Z87.891 PERSONAL HISTORY OF NICOTINE DEPENDENCE 12/23/2019 BAIMA, HIMANSHU L LANGUAGE TUTOR Ot 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 12/23/2019 BAIMA, HIMANSHU L LANGUAGE TUTOR Ot G47.39 OTHER SLEEP APNEA 12/23/2019 BAIMA, HIMANSHU L LANGUAGE TUTOR Ot I 10 ESSENTIAL (PRIMARY) HYPERTENSION 12/23/2019 BAIMA, HIMANSHU L LANGUAGE TUTOR Ot R 51 HEADACHE 12/23/2019 BAIMA, HIMANSHU L LANGUAGE TUTOR Ot Z79.891 MCFP (CURRENT) USE OF OPIATE ANALGE 12/23/2019 BAIMA, HIMANSHU L LANGUAGE TUTOR Ot E78.5 HYPERLIPIDEMIA, UNSPECIFIED 12/23/2019 BAIMA, HIMANSHU L LANGUAGE TUTOR Ot G47.33 OBSTRUCTIVE SLEEP APNEA (ADULT) (PEDIATR 12/23/2019 BAIMA, HIMANSHU L LANGUAGE TUTOR Ot I 10 ESSENTIAL (PRIMARY) HYPERTENSION 12/23/2019 BAIMA, HIMANSHU L LANGUAGE TUTOR Ot R00.2 PALPITATIONS 12/23/2019 BAIMA, HIMANSHU L LANGUAGE TUTOR Ot R07.89 OTHER CHEST PAIN 12/23/2019 BAIMA, HIMANSHU L LANGUAGE TUTOR Ot E78.5 HYPERLIPIDEMIA, UNSPECIFIED 12/23/2019 BAIMA, HIMANSHU L LANGUAGE TUTOR Ot G47.33 OBSTRUCTIVE SLEEP APNEA (ADULT) (PEDIATR 12/23/2019 BAIMA, HIMANSHU L LANGUAGE TUTOR Ot I08.0 RHEUMATIC DISORDERS OF BOTH MITRAL AND A 12/23/2019 BAIMA, HIMANSHU L LANGUAGE TUTOR Ot I 10 ESSENTIAL (PRIMARY) HYPERTENSION Procedures Code Description Performed By Per meghna On . SURG TOOTH EXTRACT NEC 10/17/2014 27.0 DRAIN FACE MOUTH FLOOR 10/17/2014 Results Test Result Range Methicillin resistant Staphylococcus aur eus (MRSA) screening culture - 03/13/16 13:30 Methicillin resistant Staphylococcus aureus (MRSA) scr eening culture NEG NRG Thyroid Stimulating Hormone - 07/31/16 0 8:22 TSH 1.18 mIU/mL 0.32-5.00 PSA Yearly Screen - 07/31/16 08:22 PSA TOTAL 1.1 ng/mL 0.0-4.0 Thyroid Stimulating Hormone - 09/11/16 1 1:26 TSH 0.98 mIU/mL 0.32-5.00 Cardiac Panel - 09/11/16 14:25 CK 102 U/L 26-174 CK-MB 2.3 ng/ml 0.0-9.2 Myoglobin 34.1 ng/ml 1.6-154.9 Troponin <0.020 ng/mL 0.0-0.4 Cardiac Panel - 09/12/16 09:49 CK 116 U/L 26-174 CK-MB 2.4 ng/ml 0.0-9.2 Myoglobin 40.4 ng/ml 1.6-154.9 Troponin <0.020 ng/mL 0.0-0.4 Sed Rate - 09/12/16 12:16 Sed Rate 5 mm/hr 0-9 Magnesium - 09/15/16 09:31 Mg++ 2.4 mg/dL 1.6-2.6 Comprehensive metabolic panel - 10/13/16 09:07 Serum or plasma sodium measurement (moles/volume) 141 mmol/L 135-145 Serum or plasma potassium measurement (moles/volume) 4.7 mmol/L 3.6-5.0 Serum or plasma chloride measurement (moles/volume) 109 mmol/L 98-107 Carbon dioxide 22 mmol/L 21-32 Serum or plasma anion gap determination (moles/volume) 10 mmol/L 5-14 Serum or plasma urea nitrogen measurement (mass/volume ) 19 mg/dL 7-18 Serum or plasma creatinine measurement (mass/volume) 1.00 mg/dL 0.60-1.30 Serum or plasma urea nitrogen/creatinine mass ratio 19 NRG Serum or plasma creatinine measurement w ith calculation of estimated glomerular filtration rate > NRG Serum or plasma glucose measurement (mass/volume) 97 mg/dL 70-105 Serum or plasma calcium measurement (mass/volume) 9.2 mg/dL 8.5-10.1 Serum or plasma total bilirubin measurement (mass/volu me) 1.3 mg/dL 0.1-1.0 Serum or plasma alkaline phosphatase ced surement (enzymatic activity/volume) 65 U/L 40-136 Serum or plasma aspartate aminotransfera se measurement (enzymatic activity/volume) 29 U/L 5-34 Serum or plasma alanine aminotransferase measurement (enzymatic activity/volume) 56 U/L 0-55 Serum or plasma protein measurement (mass/volume) 6.8 g/dL 6.4-8.2 Serum or plasma albumin measurement (mass/volume) 4.4 g/dL 3.2-4.5 Magnesium - 10/13/16 09:07 Magnesium 2.2 mg/dL 1.8-2.4 Lipid 1996 panel - 10/13/16 09:07 Serum or plasma triglyceride measurement (mass/volume) 219 mg/dL <150 Serum or plasma cholesterol measurement (mass/volume) 215 mg/dL < 200 Serum or plasma cholesterol in HDL measurement (mass/v olume) 41 mg/dL 40-60 Cholesterol in LDL [mass/volume] in serum or plasma by direct assay 149 mg/dL 1-129 Serum or plasma cholesterol in VLDL measurement (mass/ volume) 44 mg/dL 5-40 THYROID STIMULATING HORMONE - 10/13/16 0 9:07 THYROID STIMULATING HORMONE 1.51 u[iU]/mL 0.35-4.94 [facility] - 10/17/16 09:39 Anion Gap 14 6-14 BUN 20 mg/dL 5-25 Calcium 9.6 mg/dL 8.3-10.4 Chloride 107 mmol/L 95-114 CO2 27 mEq/L 22-33 Creat 1.01 mg/dL 0.50-1.50 eGFR 77 mL/min/1.73m2 >59 Glucose 83 mg/dL 70-110 Osmo 297 280-295 Potassium 4.9 mmol/L 3.5-5.3 Sodium 143 mmol/L 134-148 Thyroid Stimulating Hormone - 11/23/16 1 5:10 TSH 1.72 mIU/mL 0.32-5.00 Cardiac Panel - 11/23/16 15:10 CK 231 U/L 26-174 CK-MB 4.2 ng/ml 0.0-9.2 Myoglobin 65.7 ng/ml 1.6-154.9 Troponin <0.020 ng/mL 0.0-0.4 [facility] - 12/26/16 09:57 Anion Gap 12 6-14 BUN 21 mg/dL 5-25 Calcium 9.3 mg/dL 8.3-10.4 Chloride 108 mmol/L 95-114 CO2 25 mEq/L 22-33 Creat 1.13 mg/dL 0.50-1.50 eGFR 68 mL/min/1.73m2 >59 Glucose 103 mg/dL 70-110 Osmo 292 280-295 Potassium 4.7 mmol/L 3.5-5.3 Sodium 140 mmol/L 134-148 Uric Acid - 02/02/17 11:30 Uric Acid 6.8 mg/dL 2.6-7.[address] [facility] Spotted Fever, IgM - 02/02/17 11:30 [facility] 0.12 INDEX 0.00-0.89 Hepatitis Panel, Acute - 02/06/17 08:49 Hep A Ab, IgM Negative Negative HBsAg Screen Negative Negative Hep B Core Ab, IgM Negative Negative Hep C Virus Ab <0.1 s/co ratio 0.0-0.9 Comprehensive Metabolic Panel - 05/06/17 10:59 Albumin 4.1 g/dL 3.6-5.1 ALP 69 U/L 35-130 ALT 47 U/L 6-45 Anion Gap 10 6-14 AST 26 U/L 2-40 BUN 15 mg/dL 5-25 Calcium 9.4 mg/dL 8.3-10.4 Chloride 112 mmol/L 95-114 CO2 22 mEq/L 22-33 Creat 1.05 mg/dL 0.50-1.50 eGFR 74 mL/min/1.73m2 >59 Globulin 2.5 g/dL 2.3-3.5 Glucose 87 mg/dL 70-110 Osmo 289 280-295 Potassium 4.2 mmol/L 3.5-5.3 Sodium 140 mmol/L 134-148 TBil 0.8 mg/dL 0.2-1.2 TP 6.6 g/dL 6.0-8.3 Comprehensive Metabolic Panel - 09/24/17 16:27 Albumin 4.3 g/dL 3.6-5.1 ALP 59 U/L 35-130 ALT 47 U/L 6-45 Anion Gap 15 6-14 AST 22 U/L 2-40 BUN 18 mg/dL 5-25 Calcium 9.8 mg/dL 8.3-10.4 Chloride 112 mmol/L 95-114 CO2 21 mEq/L 22-33 Creat 1.00 mg/dL 0.50-1.50 eGFR 78 mL/min/1.73m2 >59 Globulin 2.5 g/dL 2.3-3.5 Glucose 87 mg/dL 70-110 Osmo 298 280-295 Potassium 4.2 mmol/L 3.5-5.3 Sodium 144 mmol/L 134-148 TBil 0.6 mg/dL 0.2-1.2 TP 6.8 g/dL 6.0-8.3 Ehrlichia Ab Panel - 12/29/17 10:56 E. chaffeensis (HME) IgG Titer Negative Neg:<1:64 E. chaffeensis (HME) IgM Titer Negative Neg:<1:20 HGE IgG Titer Negative Neg:<1:64 HGE IgM Titer Negative Neg:<1:20 CESARIO Other Source - 12/29/17 10:56 CESARIO Other Source No Fungal elements seen 0.00-0.00 Ehrlichia Ab Panel - 12/29/17 10:56 E. CHAFFEENSIS (HME) IGG TITER NEGATIVE NEG:<1:64 E. CHAFFEENSIS (HME) IGM TITER NEGATIVE NEG:<1:20 HGE IGG TITER NEGATIVE NEG:<1:64 HGE IGM TITER NEGATIVE NEG:<1:[address] [facility] Spotted Fever, IgM - 12/29/17 10:56 DAVID MTN SPOTTED FEVER, IGM 0.21 INDEX 0.00-0.89 Lyme Ab/Western Blot Reflex - 12/29/17 1 0:56 Lyme IgG/IgM Ab <0.91 ISR 0.00-0.90 Lyme Disease Ab, Quant, IgM <0.80 index 0.00-0.79 [facility] Spotted Fev, IgG, Qn - 8 10:56 RMSF, IgG, EIA Positive Negative RMSF, IgG, IFA - 12/29/17 10:56 RMSF, IgG, IFA 1:128 Neg <1:64 [facility] Spotted Fever, IgM - 12/29/17 10:56 David M[facility] Spotted Fever, IgM 0.21 index 0.00-0.89 David Mtn Spotted Fev, IgG, Qn - 8 11:47 RMSF, IgG, EIA Negative Negative David Mtn Spotted Fever, IgM - 03/10/18 11:47 David Mtn Spotted Fever, IgM 0.47 index 0.00-0.89 Ehrlichia Ab Panel - 03/10/18 11:47 E. chaffeensis (HME) IgG Titer Negative Neg:<1:64 E. chaffeensis (HME) IgM Titer Negative Neg:<1:20 HGE IgG Titer Negative Neg:<1:64 HGE IgM Titer Negative Neg:<1:20 Comprehensive Metabolic Panel - 03/10/18 11:47 Albumin 4.5 g/dL 3.6-5.1 ALP 64 U/L 35-130 ALT 43 U/L 6-45 Anion Gap 15 6-14 AST 25 U/L 2-40 BUN 16 mg/dL 5-25 Calcium 9.4 mg/dL 8.3-10.4 Chloride 114 mmol/L 95-114 CO2 17 mEq/L 22-33 Creat 0.94 mg/dL 0.50-1.50 eGFR 84 mL/min/1.73m2 >59 Globulin 2.5 g/dL 2.3-3.5 Glucose 84 mg/dL 70-110 Osmo 294 280-295 Potassium 4.4 mmol/L 3.5-5.3 Sodium 142 mmol/L 134-148 TBil 0.7 mg/dL 0.2-1.2 TP 7.0 g/dL 6.0-8.3 David [facility] Spotted Fever, IgM - 03/10/18 11:47 [facility] 0.47 IN[facility].00-0.89 [facility] - 03/10/18 11: 47 RMSF, IGG, EIA NEGATIVE NEGATIVE Ehrlichia Ab Panel - 03/10/18 11:47 E. CHAFFEENSIS (HME) IGG TITER NEGATIVE NEG:<1:64 E. CHAFFEENSIS (HME) IGM TITER NEGATIVE NEG:<1:20 HGE IGG TITER NEGATIVE NEG:<1:64 HGE IGM TITER NEGATIVE NEG:<1:20 Comprehensive Metabolic Panel - 05/14/18 11:06 Albumin 4.1 g/dL 3.6-5.1 ALP 64 U/L 35-130 ALT 34 U/L 6-45 Anion Gap 11 6-14 AST 26 U/L 2-40 BUN 14 mg/dL 5-25 Calcium 9.3 mg/dL 8.3-10.4 Chloride 115 mmol/L 95-114 CO2 19 mEq/L 22-33 Creat 0.93 mg/dL 0.50-1.50 eGFR 85 mL/min/1.73m2 >59 Globulin 2.6 g/dL 2.3-3.5 Glucose 114 mg/dL 70-110 Osmo 292 280-295 Potassium 3.8 mmol/L 3.5-5.3 Sodium 141 mmol/L 134-148 TBil 0.7 mg/dL 0.2-1.2 TP 6.7 g/dL 6.0-8.3 CES[facility]IO Other Source - 06/24/19 11:37 CES[facility]IO Other Source No Fungal elements seen 0.00-0.00 Thyroid Stimulating Hormone - 08/23/19 0 8:24 TSH 1.25 mIU/mL 0.32-5.00 Encounters ACCT No. Visit Date/Time Discharge Status Pt. Type Provider Facility Loc./Unit Complaint [id number] 12/31/2017 15:24:00 Document Registration [id number] 07/25/2019 13:38:00 019 23:59:59 CLS Outpatient HIMANSHU SANDOVAL LANGUAGE TUTOR [facility] CARD LAM, OTHER CHES T PAIN, PALPITATIONS [id number] 07/19/2019 12:01:00 019 23:59:59 CLS Outpatient HIMANSHU SANDOVAL LANGUAGE TUTOR [facility] CARD LAM, OTHER CHES T PAIN, PALPITATIONS [id number] 01/05/2017 08:28:00 017 23:59:59 CLS Outpatient HIMANSHU SANDOVALP [facility] LAB I10,E78.4,G47.3 9 [id number] 10/13/2016 08:56:00 017 23:59:59 CLS Outpatient NOMAN GALLARDO MD, FACC, FACP CC DS [facility] LAB HTN,ECG ABN ORMAL,HX TOBACCO USE,HEADACHE [id number] 09/24/2016 12:57:00 017 23:59:59 CLS Outpatient NOMAN GALLARDO MD, FACC, FACP DS Via [facility] RAD HEADACHE [id number] 09/23/2016 07:22:00 017 23:59:59 CLS Outpatient NOMAN GALLARDO MD, FACC, FACP DS Via [facility] CARD HTN,ECG,HLP [id number] 03/21/2016 11:21:00 016 17:30:00 DIS Outpatient BRENNEN DPM, ALISA Q Via [facility] SDC LEFT TORN PERNIEAL TEND ON [id number] 03/13/2016 12:27:00 016 13:21:00 DIS Outpatient BRENNEN DPM, ALISA Q Via [facility] PREOP LEFT TORN PERNIEAL TEND ON [id number] 12/27/2019 08:00:00 P EN Janessa GALLARDO MD FACC, NOMAN FACP CCDS Via [facility] CHEST DISCOMFORT [id number] 10/16/2014 14:14:00 Document Registration [id number] 05/03/2012 21:29:00 Document Registration [id number] 03/13/2018 01:08:00 Document Registration [id number] 03/15/2018 16:24:00 Document Registration [id number] 12/13/2019 12:08:00 12/13/2019 23:59 :00 DIS Outpatient Juanpablo, Oralia [id number] 12/13/2019 12:07:00 12/13/2019 23:59 :00 DIS Outpatient Juanpablo, Oralia [id number] 12/09/2019 13:46:00 12/09/2019 23:59 :00 DIS Outpatient Juanpablo, Oralia [id number] 12/09/2019 10:13:00 12/09/2019 23:59 :00 DIS Outpatient Juanpablo, Oralia [id number] 11/17/2019 15:30:00 11/17/2019 23:59 :00 DIS Outpatient Juanpablo, Oralia [id number] 09/21/2019 14:29:00 09/21/2019 23:59 :00 DIS Outpatient Juanpablo, Oralia [id number] 08/23/2019 08:22:00 08/23/2019 23:59 :00 DIS Outpatient Juanpablo, Oralia [id number] 08/19/2019 16:19:00 08/19/2019 23:59 :00 DIS Outpatient Juanpablo, Oralia [id number] 06/24/2019 11:34:00 06/24/2019 23:59: 00 DIS Outpatient Nahomy Wright [id number] 06/24/2019 09:00:00 06/24/2019 23:59: 00 DIS Outpatient Nahomy Wright [id number] 05/18/2019 14:06:00 05/18/2019 23:59: 00 DIS Outpatient Nahomy Wright [id number] 01/21/2019 10:50:00 01/21/2019 23:59: 00 DIS Outpatient Oralia Geronimo [id number] 05/14/2018 10:47:00 05/14/2018 12:55: 00 DIS [facility] [id number] 03/10/2018 11:44:00 03/10/2018 23:59: 00 DIS Outpatient Oralia Geronimo [id number] 12/30/2017 00:00:00 12/30/2017 23:59: 00 DIS Outpatient Oralia Geronimo [id number] 12/29/2017 10:54:00 12/29/2017 23:59: 00 DIS Outpatient Oralia Geronimo [id number] 09/24/2017 16:24:00 09/24/2017 23:59: 00 DIS Outpatient Oralia Geronimo [id number] 05/06/2017 10:51:00 05/06/2017 23:59: 00 DIS Outpatient Oralia Geronimo [id number] 02/06/2017 08:44:00 02/06/2017 23:59: 00 DIS Outpatient Oralia Geronimo [id number] 02/02/2017 11:25:00 02/02/2017 23:59: 00 DIS Outpatient Oralia Geronimo [id number] 12/26/2016 09:55:00 12/26/2016 23:59: 00 DIS Outpatient Oralia Geronimo [id number] 11/23/2016 13:47:00 11/23/2016 16:44: 00 DIS Outpatient Franzaria [facility] ER [id number] 10/22/2016 00:00:00 10/22/2016 23:59: 00 DIS Outpatient Sariah Geronimoa [id number] 10/17/2016 09:33:00 10/17/2016 23:59: 00 DIS Outpatient Oralia Geronimo [id number] 09/15/2016 09:28:00 09/15/2016 23:59: 00 DIS Outpatient Steffen Bj [id number] 09/12/2016 08:51:00 09/12/2016 13:25: 00 DIS Outpatient Bj Bourne [id number] 09/11/2016 10:45:00 09/11/2016 15:33: 00 DIS Outpatient Nahomy Wright [facility] ER [id number] 07/31/2016 08:18:00 07/31/2016 23:59: 00 DIS Outpatient Juanpablo, Oralia [id number] 02/04/2019 09:56:33 Document Registration [id number] 01/21/2019 09:52:00 Document Registration [id number] 03/10/2018 11:06:00 Document Registration [id number] 02/05/2018 09:50:00 Document Registration [id number] 12/29/2017 10:09:00 Document Registration [id number] 12/11/2017 10:32:00 Document Registration [id number] 11/23/2017 13:44:00 Document Registration [id number] 11/15/2017 09:35:00 Document Registration [id number] 09/24/2017 15:33:00 Document Registration [id number] 07/15/2017 10:48:00 Document Registration [id number] 09/11/2016 12:37:56 Document Registration [id number] 01/04/2018 17:13:00 Document Registration
[2019-12-27 07:41] LABS: HEMOGLOBIN 14.4 G/DL (13.3-17.7); MEAN PLATELET VOLUME 10.1 FL (7.4-10.4); RED CELL DISTRIBUTION WIDTH 13.3 % (10.0-14.5); WHITE BLOOD COUNT 6.9 10^3/uL (4.3-11.0)
[2019-12-27 07:53] LABS: INR 0.9 (0.8-1.4)
[2019-12-27 08:01] LABS: ALANINE AMINOTRANSFERASE 21 U/L (0-55); ALBUMIN 4.4 GM/DL (3.2-4.5); ALKALINE PHOSPHATASE 55 U/L (40-136); BILIRUBIN,TOTAL 0.5 MG/DL (0.1-1.0); BUN/CREATININE RATIO 13; CALCIUM 9.3 MG/DL (8.5-10.1); CARBON DIOXIDE 20 MMOL/L (21-32); CHLORIDE 111 MMOL/L (98-107); CHOLESTEROL 242 MG/DL (< 200); CREATININE SERUM 1.07 MG/DL (0.60-1.30); GFR ESTIMATED > 60; GLUCOSE 105 MG/DL (70-105); HDL CHOLESTEROL 36 MG/DL (40-60); POTASSIUM 4.4 MMOL/L (3.6-5.0); SODIUM 141 MMOL/L (135-145); TOTAL PROTEIN 7.3 GM/DL (6.4-8.2); TRIGLYCERIDES 178 MG/DL (<150); VLDL CHOLESTEROL 36 MG/DL (5-40)
[2019-12-27] MEDS ORDERED: INDO25OR2 PO (08:11)
[2019-12-27] MEDS ORDERED: FLUT1AER IH (08:11)
[2019-12-27] MEDS ORDERED: TOPI100T11 PO (08:11)
[2019-12-27] MEDS ORDERED: LISI-552 PO (08:11)
[2019-12-27] MEDS ORDERED: TRAM50TA3 PO (08:11)
[2019-12-27] MEDS ORDERED: DICL1KIT14 TP (08:11)
[2019-12-27] MEDS ORDERED: RT-ALBUINH IH (08:11)
[2019-12-27] MEDS ORDERED: METO50TA7 PO (08:11)
[2019-12-27] MEDS ORDERED: TIZA2TAB4 PO (08:11)
[2019-12-27] MEDS ORDERED: SOLI5TAB7 PO (08:11)
[2019-12-27] MEDS ORDERED: ACET-2267 PO (08:11)
[2019-12-27] MEDS ORDERED: fentaNYL INJECTION 100 MCG/2 ML AMP ONE (09:35)
[2019-12-27] MEDS ORDERED: MIDAZOLAM 5 MG/5 ML (VERSED) VIAL ONE (09:35)
--- NOTE | 2019-12-27 09:49 | Cardiac Procedure Note-CS/ASA ---
Pre-Procedure Note Pre-Op Procedure Note H&P Reviewed The H&P was reviewed, patient examined and no changes noted. Date H&P Reviewed: December 27, 2019 Time H&P Reviewed: 09:49 Conscious Sedation Pre-Proced Time 09:49 ASA Score 3 For ASA 3 and 4: Consider anesthesia and medical clearance. Also, for patients with a history of failed moderate sedation consider anesthesia. Airway Lungs Heart ASA score ASA 1: a normal healthy patient ASA 2: a patient with a mild systemic disease (mid diabetes, controlled hypertension, obesity ASA 3: a patient with a severe systemic disease that limits activity (angina, COPD, prior Myocardial infarction) ASA 4: a patient with an incapacitating disease that is a constant threat to life (CHF, renal failure) ASA 5: a moribund patient not expected to survive 24 hrs. (ruptured aneurysm) ASA 6: a declared brain- patient whose organs are being harvested. For emergent operations, add the letter E after the classification Mallampati Classification Grade 2 Sedation Plan Analgesia, Amnesia, Plan communicated to team members, Discussed options with patient/fam, Discussed risks with patient/fam The patient is an appropriate candidate to undergo the planned procedure, sedation, and anesthesia. The patient immediately re-assessed prior to indication. NOMAN GALLARDO MD FACP FAC CCDS December 27, 2019 09:49
[2019-12-27] MEDS ORDERED: ADENOSINE 3 MG/1 ML (ADENOSCAN) 30ML VIAL IV ONE (10:03)
[2019-12-27] MEDS ORDERED: HEParin 1000 UNIT/ML (10ML VIAL) FOR BOLUS ONE (10:03)
[2019-12-27] MEDS ORDERED: PATIENT MAY USE OWN MEDS, ALL PO SCH (10:45)
[2019-12-27] MEDS ORDERED: ATOR40TA70 PO (10:48)
[2019-12-27] MEDS ORDERED: CLOP75TA28 PO (10:48)
--- NOTE | 2019-12-27 10:49 | Discharge Inst-Cardiology ---
Discharge Inst-Cardiac Discharge Medications New Medications: Atorvastatin Calcium (Atorvastatin Calcium) 40 Mg Tablet 40 MG PO HS for 30 Days, #30 TAB 5 Refills Clopidogrel Bisulfate (Clopidogrel) 75 Mg Tablet 75 MG PO DAILY, #30 TAB 5 Refills Continued Medications: Acetaminophen (Tylenol Extra Strength) 500 Mg Tablet 500 MG PO PRN, TAB Albuterol Sulfate (Proair Hfa) 1 Puff Puff 2 PUFF IH Q4H, PUFF 1 PUFF = 90 MCG Ascorbic Acid (Vitamin C) 500 Mg Tablet.er 500 MG PO DAILY, TAB Calcium Carbonate (Calcium) 600 Mg Tablet 600 MG PO DAILY, TAB [Cleocin 250MG] () TAB 1 TAB PO TID, #28 0 Refills Diclofenac Sodium (Diclo Gel) 1 Each Kit 1 EACH TP PRN, KIT Fluticasone/Vilanterol (Breo Ellipta 100-25 Mcg INH) 1 Each Blst.w.dev 1 EACH IH DAILY Hydrocodone Bit/Acetaminophen (Lortab 5 Mg Tablet) 1 Each Tablet 1 EACH PO Q4H PRN for PAIN, #30 TAB Indomethacin (Indocin) 25 Mg/5 Ml Oral.susp 25 MG PO PRN, ML Lisinopril (Lisinopril) 20 Mg Tablet 20 MG PO BID, TAB Loratadine (Loratadine) 10 Mg Tablet 10 MG PO DAILY, TAB Metoprolol Succinate (Metoprolol Succinate) 50 Mg Tab.er.24h 50 MG PO DAILY, TAB Solifenacin Succinate (Solifenacin Succinate) 5 Mg Tablet 5 MG PO DAILY, TAB Tizanidine HCl (Tizanidine HCl) 2 Mg Tablet 2 MG PO PRN, TAB Topiramate (Topiramate) 100 Mg Tablet 100 MG PO PRN, TAB Tramadol HCl (Tramadol HCl) 50 Mg Tablet 50 MG PO PRN, TAB Discontinued Medications: Enalapril Maleate (Enalapril Maleate) 10 Mg Tablet 10 MG PO DAILY Enalapril Maleate (Enalapril Maleate) 10 Mg Tablet 5 MG PO HS TAKES 1/2 (10MG) TABLET AT BEDTIME NOMAN GALLARDO MD FACP FACC CCDS December 27, 2019 10:49
--- NOTE | 2019-12-27 10:50 | Discharge Inst-Post CATH ---
Discharge Inst-CATH/EP Post Cardiac Cath/EP D/C Inst Follow Up/Plan F/u with Dr Pratt in 2 weeks ACTIVITY * Go Home directly and rest. * Limit activity of the leg (or wrist if it was used) for 7 days including aerobics, swimming, jogging, bicycling, etc. * Restrict stair-climbing for 7 days if possible, if not, climb up with your n on-cath leg, then bring together on the same step. * Avoid lifting, pushing, pulling or excessive movement of the affected ex tremity for 7 days. * Customary sexual activity may be resumed after 2 days-use caution not to use a position that strains or causes pain to the affected extremity. * No driving for 24 hours. * NO SMOKING. * Avoid straining for bowel movements for 7 days. * Gentle walking on level ground is allowed. * Returning to work will depend on the type of procedure and the results. Your doctor will discuss this with you. CALL YOUR DOCTOR FOR ANY OF THE FOLLOWING: *If bleeding from the puncture site occurs- Apply gentle pressure to site with clean cloth and call your doctor or EMS. * If a knot or lump forms under the skin, increases in size, or causes pain. * If bruising appears to be worsening or moving further down your leg instead of disappearing. * Temperature above 101 F. CARE OF YOUR GROIN INCISION; * Bruising or purple discoloration of the skin near the puncture site is common. * You may shower only, no bathtub bathing for 5 days. Be careful to avoid slipping as your leg may feel stiff. * If a closure device was used on your femoral artery, please see the attached guide regarding care of the device and your leg. * Leave dressing on FOR 24 hours. CARE OF YOUR WRIST INCISION; * Bruising or purple discoloration of the skin near the puncture site is common. * You may shower. * DO NOT submerge wrist. * Leave dressing on FOR 24 hours. NOMAN PRATT MD FACP FAC CCDS December 27, 2019 10:50
--- NOTE | 2019-12-27 11:19 | CARDIAC CATHETERIZATION ---
DATE OF SERVICE: 12/27/2019 CARDIAC CATHETERIZATION The patient is a 54-year-old man with multiple coronary risk factors, who has been experiencing chest discomfort and is concerned that this is of a cardiac origin. Some features of chest discomfort are suggestive of angina pectoris. Given frequent symptoms, cardiac catheterization was carried out today after having obtained an informed consent. DESCRIPTION OF PROCEDURE: He was brought to the cardiac catheterization laboratory in a fasting state. Right groin was prepared and draped in the usual sterile fashion. Lidocaine 1% was used for local anesthesia. Modified Seldinger technique was used to advance a 5-Kosovan sheath in right femoral artery, 5-Kosovan JL4 catheter for left coronary angiography, 5-Kosovan JR4 catheter for right coronary angiography, 5-Kosovan pigtail catheter was used for left heart catheterization and left ventricular angiography. Subsequently, fractional flow reserve measurement was carried out and the left circumflex artery that is described below. FRACTIONAL FLOW RESERVE MEASUREMENT IN THE LEFT CIRCUMFLEX ARTERY: The 5-Kosovan sheath was exchanged over a wire for a 6-Kosovan sheath. We gave 6000 units of intravenous heparin. We used a 6-Kosovan JL4 guide catheter to engage the left coronary system and advanced the pressure wire across the left circumflex artery lesions (proximal and distal lesions) and the tip was placed in the very distal left circumflex. We gave 140 mcg per kilogram per minute of adenosine over 2-1/2 minutes. Fractional flow reserve was measured at 0.89 across the combination of the lesions, indicating that they were hemodynamically insignificant. The equipment was removed. Angiography of the right femoral artery was carried out through the sheath. Mynx was used to achieve hemostasis. He tolerated the procedure well. HEMODYNAMICS: Left ventricular end-diastolic pressure following coronary angiography was 10 mmHg. There was no significant pressure gradient on pullback across the aortic valve. Ascending aortic pressure was 87/47 with a mean of 47 mmHg. CORONARY ANGIOGRAPHY: Left main coronary artery is free of significant disease. Left anterior descending artery does not exhibit significant disease. Left circumflex artery had approximately 30% proximal stenosis and 50-60% distal stenosis. Fractional flow reserve measurement across the combination of these lesions is 0.89, indicating that they are hemodynamically nonsignificant. The right coronary artery is dominant and has multiple 30 to 40% stenoses. LEFT VENTRICULAR ANGIOGRAPHY: Left ventricular angiography was carried out in the right anterior oblique projection. Global left ventricular systolic function is normal. Left ventricular ejection fraction approximately 65%. CONCLUSIONS: 1. Coronary artery disease, mild to moderate. The left circumflex artery had 30% proximal and 50 to 60% distal stenosis. Fractional flow reserve measurement across a combination of these lesions is 0.89, indicating hemodynamic nonsignificance. The right coronary artery has diffuse mild to moderate disease. 2. Normal global left ventricular systolic function with ejection fraction 65%. 3. Normal left ventricular end-diastolic pressure. DISCUSSION AND RECOMMENDATIONS: Based on the results of the study, it appears appropriate to continue a conservative approach. Antiplatelet therapy is recommended. HE REPORTS ALLERGY TO ASPIRIN. We are initiating clopidogrel. We also recommended statin therapy. We advised outpatient followup. We have advised him to continue to refrain from tobacco use. Job ID: [id number] DocumentID: [id number] Dictated Date: 12/27/2019 10:36:49 Bench Repair Technician Date: 12/27/2019 11:18:52 Dictated By: NOMAN GALLARDO MD, MA, FACP, FACC, MTDD
--- NOTE | 2019-12-27 12:33 | NUR ---
discharge instructions given both verbally etin print. new meds, and dc'd meds highlighted, discussion of labs to be drawn in 4 weeks. discussion of january [address] watson in the [facility] office. new and old phone numbers given. pt and both verbalize understanding. pt states, dr watson stated he may return to work thursday. rn encourages pt to adhere to the safety precautions to protect his right groin cath site. pt agrees.
--- NOTE | 2019-12-27 13:35 | NUR ---
called for monitor strip. then, we will walkin in halls, et get pt discharged, if no problems.
--- NOTE | 2019-12-27 14:05 | NUR ---
IV DC'D. NO REDNESS OR EDEMA AT SITE, LIGHT PRESSURE DRESSING APPLIED. PT WALKED IN HALLS WITH NO DIFFICULTY, NO CHANGE IN RIGHT GROIN CATH SITE, DRESSED IN STREET CLOTHES, THEN DC'D PER WC, ACCOMPANIED BY STAFF AND TO PRIVATE CAR TO GO HOME. THEY HAVE THEIR GOING HOME INSTRUCTIONSWITH THEM.
== END 2019-12-27 14:05 | disposition home or self-care (01) ==
LOC: CATH 07:05 → SDC 10:44 → CATH 14:05
PROVIDERS: ATTEND Internal Medicine Cardiovascular Disease
DX: I25.10 Atherosclerotic heart disease of native coronary artery without angina pectoris (principal); I10 Essential (primary) hypertension; G47.33 Obstructive sleep apnea (adult) (pediatric); E78.5 Hyperlipidemia, unspecified; Z88.0 Allergy status to penicillin; Z88.6 Allergy status to analgesic agent; Z99.89 Dependence on other enabling machines and devices; Z79.899 Other long term (current) drug therapy; Z87.891 Personal history of nicotine dependence; Z83.3 Family history of diabetes mellitus
CPT/HCPCS: 36415; 80053; 80061; 85027; 85610; 85730; 87081; 93458

== ENCOUNTER → 2020-02-07 | Outpatient (CLI) | payer BC ==
[~2020-02-07] MED LIST changes: +ACET-2267 PO; +ATOR40TA70 PO; +CLOP75TA28 PO; +DICL1KIT14 TP; +FLUT1AER IH; +INDO25OR2 PO; +LISI-552 PO; +METO50TA7 PO; +RT-ALBUINH IH; +SOLI5TAB7 PO; +TIZA2TAB7 PO; +TOPI100T11 PO; +TRAM50TA3 PO
[2020-02-07 09:35] LABS: ALBUMIN 4.1 GM/DL (3.2-4.5); CHLORIDE 116 MMOL/L (98-107); POTASSIUM 4.1 MMOL/L (3.6-5.0); SODIUM 142 MMOL/L (135-145)
[2020-02-07 09:36] LABS: CALCIUM 8.9 MG/DL (8.5-10.1)
[2020-02-07 09:37] LABS: TOTAL PROTEIN 6.7 GM/DL (6.4-8.2); TRIGLYCERIDES 127 MG/DL (<150); VLDL CHOLESTEROL 25 MG/DL (5-40)
[2020-02-07 09:38] LABS: GLUCOSE 102 MG/DL (70-105)
[2020-02-07 09:39] LABS: BILIRUBIN,TOTAL 0.5 MG/DL (0.1-1.0); CARBON DIOXIDE 19 MMOL/L (21-32)
[2020-02-07 09:41] LABS: ALKALINE PHOSPHATASE 67 U/L (40-136); CREATININE SERUM 0.86 MG/DL (0.60-1.30); GFR ESTIMATED > 60
[2020-02-07 09:42] LABS: BUN/CREATININE RATIO 13; CHOLESTEROL 139 MG/DL (< 200)
[2020-02-07 09:43] LABS: HDL CHOLESTEROL 38 MG/DL (40-60)
[2020-02-07 09:44] LABS: ALANINE AMINOTRANSFERASE 35 U/L (0-55)
== END ==
LOC: LAB 08:50
PROVIDERS: ATTEND Internal Medicine Cardiovascular Disease
DX: I25.10 Atherosclerotic heart disease of native coronary artery without angina pectoris (principal)
CPT/HCPCS: 36415; 80053; 80061

== ENCOUNTER → 2020-07-06 | Outpatient (CLI) | payer BC ==
[~2020-07-06] MED LIST changes: -CALC600T12 PO; +CLC600T PO
[2020-07-06 09:19] LABS: ALANINE AMINOTRANSFERASE 22 U/L (0-55); ALBUMIN 4.1 GM/DL (3.2-4.5); ALKALINE PHOSPHATASE 57 U/L (40-136); BUN/CREATININE RATIO 15; CALCIUM 8.7 MG/DL (8.5-10.1); CARBON DIOXIDE 18 MMOL/L (21-32); CHLORIDE 114 MMOL/L (98-107); CHOLESTEROL 117 MG/DL (< 200); CREATININE SERUM 0.94 MG/DL (0.60-1.30); GFR ESTIMATED > 60; GLUCOSE 102 MG/DL (70-105); HDL CHOLESTEROL 35 MG/DL (40-60); POTASSIUM 4.1 MMOL/L (3.6-5.0); SODIUM 142 MMOL/L (135-145); TOTAL PROTEIN 6.5 GM/DL (6.4-8.2); TRIGLYCERIDES 93 MG/DL (<150); VLDL CHOLESTEROL 19 MG/DL (5-40)
== END ==
LOC: LAB 08:39
PROVIDERS: ATTEND Nurse Practitioner Family
DX: I25.10 Atherosclerotic heart disease of native coronary artery without angina pectoris (principal); I65.23 Occlusion and stenosis of bilateral carotid arteries; I10 Essential (primary) hypertension; E78.5 Hyperlipidemia, unspecified
CPT/HCPCS: 36415; 80053; 80061

== ENCOUNTER → 2020-10-16 | Outpatient (CLI) | payer BC ==
[~2020-10-16] MED LIST changes: -LISI-552 PO; +LISI20TA26 PO; +TIZA-169 PO; -TIZA2TAB7 PO
--- NOTE | 2020-10-16 12:51 | Diagnostic Imaging Report ---
PROCEDURE: MRI lumbar spine. TECHNIQUE: Multiplanar, multisequence MRI of the lumbar spine was performed without contrast. INDICATION: Low back pain. COMPARISON: None. FINDINGS: There are 5 lumbar-type vertebral bodies for the purposes of this report. Normal alignment. Vertebral body heights are preserved. There are postoperative findings of a right hemilaminotomy at L4-L5. No abnormal signal in the conus which terminates at L1-L2. Normal morphology of the cauda equina. The visualized pelvis and paravertebral soft tissues are unremarkable. L1-L2: Normal. L2-L3: Normal. L3-L4: Tiny right paracentral disc protrusion. Mild spinal canal and right lateral recess narrowing. No neural foraminal narrowing. L4-L5: No spinal canal or lateral recess narrowing. Disc space height loss contributes to mild bilateral neural foraminal narrowing. L5-S1: No spinal canal, lateral recess or neural foraminal narrowing. IMPRESSION: 1. Postoperative findings of right hemilaminotomy at L4-L5. 2. Spondylotic changes result in no high-grade neural impingement. 3. No acute osseous findings. Dictated by: Dictated on workstation # [id number]
== END ==
LOC: RAD 10-15 13:30
PROVIDERS: ATTEND Physician Assistant
DX: M47.26 Other spondylosis with radiculopathy, lumbar region (principal); M51.16 Intervertebral disc disorders with radiculopathy, lumbar region; M48.061 Spinal stenosis, lumbar region without neurogenic claudication
CPT/HCPCS: 72148

== ENCOUNTER → 2021-03-15 | Outpatient (CLI) | payer BC ==
[~2021-03-15] MED LIST changes: +CALC600T91 PO; -CLC600T PO
--- NOTE | 2021-03-15 11:38 | Diagnostic Imaging Report ---
PROCEDURE: MRI lumbar spine. TECHNIQUE: Multiplanar, multisequence MRI of the lumbar spine was performed without contrast. INDICATION: Increasing lower back pain. History of recent lumbar spine fusion. COMPARISON: 10/16/2020 FINDINGS: For the purposes of this exam, last well-formed disc space is denoted to be the L5-S1 level. Since the previous exam, there has been interval laminectomy and posterior fusion at L5-S1. Evaluation of integrity of the hardware is suboptimal secondary to MR modality and metallic susceptibility artifact. Static alignment however at this level is preserved. Intervertebral disc spacers are also noted and appear appropriately positioned. Remainder of the lumbar spine shows normal static alignment. There is no evidence of jumped facets. Vertebral body heights are maintained as well. There is no acute fracture. Marrow signal is unremarkable. Remaining intervertebral disc spaces show mild multilevel height loss. Visualized portions of the distal cord are unremarkable. Conus terminates at approximately the L1 level. No abnormal intrathecal filling defects are seen. Pre and paravertebral soft tissue structures are unremarkable. Axial images demonstrate the following: T12-L1: There is no large disc bulge or focal protrusion. There is no significant spinal canal or neuroforaminal stenosis. L1-L2: There is no large disc bulge or focal protrusion. There is no significant spinal canal or neuroforaminal stenosis. L2-L3: There is slight broad-based posterior disc bulge and bilateral ligamentum flavum laxity and facet arthropathy. As a result, there is minimal narrowing of the spinal canal and neural foramen. L3-L4: There is broad-based posterior disc bulge with bilateral ligamentum flavum laxity and facet arthropathy. As a result, there is mild narrowing of the spinal canal and bilateral neural foramen. L4-L5: Postsurgical changes as described above. There is no significant spinal canal stenosis. Note is made however of loss of normal fat signal within the left lateral recess and left neural foramen. This extends from the surgical site on the left. There is moderate narrowing of the left neuroforamen. Right neural foramen and spinal canal are unremarkable. L5-S1: There is no large disc bulge or focal protrusion. There is no significant spinal canal or neuroforaminal stenosis. IMPRESSION: 1. Postsurgical changes of interval laminectomy and posterior fusion at the L4-L5 level as above. 2. Abnormal signal within the surgical bed extending into the left lateral recess and neural foramen at L4-L5. While this may be on the basis of residual postoperative edema, developing fibrosis or scar cannot be excluded. 3. No acute fracture or dislocation of the lumbar spine. Dictated by: Dictated on workstation # [id number]
== END ==
LOC: RAD 10:15
PROVIDERS: ATTEND Physician Assistant
DX: M47.26 Other spondylosis with radiculopathy, lumbar region (principal); M51.16 Intervertebral disc disorders with radiculopathy, lumbar region; M48.061 Spinal stenosis, lumbar region without neurogenic claudication; Z98.890 Other specified postprocedural states; Z98.1 Arthrodesis status
CPT/HCPCS: 72148

== ENCOUNTER 2021-04-18 12:52 | Outpatient (RCR) | payer BC | END 2021-05-09 15:29 | disposition home or self-care (01) | PROVIDERS: ATTEND Physician Assistant | DX: M54.16 Radiculopathy, lumbar region (principal); I10 Essential (primary) hypertension; Z98.1 Arthrodesis status | CPT/HCPCS: 97163; G0283 ==

== ENCOUNTER → 2022-04-15 | Outpatient (CLI) | payer BC ==
[~2022-04-15] MED LIST changes: +REGADENOSON 0.4 MG/5 ML SYR (LEXISCAN) IV ONE
[2022-04-15] MEDS: CATHETER FLUSH 10 ML SYR IVP PRN ×2 (12:12→13:15)
[2022-04-15 13:14] VITALS: BP 127/75
--- NOTE | 2022-04-15 20:09 | STRESS TEST ---
DATE OF SERVICE: 04/15/2022 RESTING AND POST REGADENOSON TECHNETIUM-99M TETROFOSMIN SPECT CT IMAGING ORDERING PHYSICIAN: Stephani Hidalgo APRN PRIMARY PHYSICIAN: Dr. Geronimo. OTHER PHYSICIAN: Dr. Gallardo. CLINICAL DIAGNOSIS: Coronary artery disease. Baseline images were carried out after injection of 10.16 mCi of technetium-99m Tetrofosmin. This was followed by 0.4 mg regadenoson and 32.4 mCi of technetium-99m Tetrofosmin for stress imaging. The electrocardiogram showed sinus rhythm at baseline. It did not change significantly with regadenoson infusion. There was subtle nonspecific ST abnormality. The patient tolerated the procedure well. Review of images at rest and following stress does not indicate any significant perfusion defects consistent with myocardial ischemia or infarction. Gated images show normal global left ventricular systolic function with normal regional wall motion. Left ventricular ejection fraction is calculated to be 69%. CONCLUSIONS: 1. No evidence of any significant myocardial ischemia or infarction on this study. 2. Normal regional wall motion. 3. Normal global left ventricular systolic function with a calculated ejection fraction of 69%. Job ID: [id number] DocumentID: [id number] Dictated Date: 04/15/2022 15:44:44 Kitchen Stewardess Date: 04/15/2022 20:09:03 Dictated By: NOMAN GALLARDO MD, MA, FACP, FACC,
== END ==
LOC: CARD 10:48
PROVIDERS: ATTEND Nurse Practitioner Family
DX: I25.10 Atherosclerotic heart disease of native coronary artery without angina pectoris (principal); I35.0 Nonrheumatic aortic (valve) stenosis
CPT/HCPCS: 78452; 93017; 93306; A9502